=== PATIENT | male | born 1975 | race Caucasian/White ===

== ENCOUNTER 2017-04-23 17:06 | Emergency (ER) | payer MEDICARE, OTHER ==
[2017-04-23 17:07] VITALS: BMI 209.6
--- NOTE | 2017-04-23 17:53 | ED PDOC ---
Arrival/HPI <TommyLiam - Last Filed: 04/24/17 05:51> - General Historian: Patient - History of Present Illness Time/Duration: Other (see hpi) Context: Other (wandering on the street) <Oumou Dobbins - Last Filed: 04/26/17 09:18> - General Chief Complaint: Substance Abuse Time Seen by Provider: 04/23/17 17:41 - History of Present Illness Narrative History of Present Illness (Text): 04/23/17 17:53 This 41 yo male, whose pmh includes hiv, drug abuse, cad, and psychiatric disorder, is brought to this ED by BLS for PES evaluation. Patient was wandering acting bizarre. Patient stated he wanted to get " high", so he walked to a construction site. He injected Amphetamine by injection. He stated he heard a voice, which he thought it was from her mother. He stated he did not feel well, so he called 911, who later sent the police. Patient stated that police told him to be evaluated in ED. Patient denies SI, HI, or paranoia. (Oumou Dobbins) Past Medical History - Provider Review Nursing Documentation Reviewed: Yes - Infectious Disease Hx of Infectious Diseases: None - Tetanus Immunization Tetanus Immunization: Unknown - Cardiac Hx Hypertension: Yes Hx Pacemaker: No - Pulmonary Hx Tuberculosis: No - Neurological Hx Seizures: No - HEENT Hx HEENT Disorder: No - Renal Hx Renal Disorder: No - Endocrine/Metabolic Hx Endocrine Disorders: No - Hematological/Oncological Hx Cancer: No - Integumentary Other/Comment: herpes - Musculoskeletal/Rheumatological Hx Musculoskeletal Disorders: Yes Hx Back Pain: Yes Hx Falls: Yes Hx Herniated Disk: Yes Other/Comment: PINCHED NERVE - Gastrointestinal Hx Gastrointestinal Disorders: No - Genitourinary/Gynecological Hx Sexually Transmitted Diseases: No - Psychiatric Hx Anxiety: Yes Hx Bipolar Disorder: Yes Hx Depression: Yes Hx Post Traumatic Stress Disorder: Yes Hx Substance Use: Yes - Past Surgical History Past Surgical History: No Previous - Surgical History Hx Coronary Stent: Yes (x3) - Anesthesia Hx Anesthesia: Yes Hx Anesthesia Reactions: No Hx Malignant Hyperthermia: No - Suicidal Assessment Feels Threatened In Home Enviroment: No <Oumou Dobbins - Last Filed: 04/26/17 09:18> Family/Social History - Physician Review Nursing Documentation Reviewed: Yes Family/Social History: Other (noncontributory) Smoking Status: Heavy Smoker > 10 Cigarettes Daily Hx Alcohol Use: Yes Hx Substance Use: Yes Substance used: crystal meth, heroine Hx Substance Use Treatment: No <Oumou Dobbins Janes - Last Filed: 04/26/17 09:18> Allergies/Home Meds <Tommy,Liam - Last Filed: 04/24/17 05:51> <Oumou Dobbins - Last Filed: 04/26/17 09:18> Allergies/Adverse Reactions: Allergies No Known Allergies Allergy (Verified 04/23/17 17:37) Home Medications: Home Meds Medication Instructions Recorded Confirmed Aspirin [Ecotrin] 81 mg PO DAILY 04/19/15 04/23/17 Emtricitab/Rilpiviri/Tenof [place] 1 tab PO DAILY 04/23/17 04/23/17 [Odefsey Tablet] Ramipril [Altace] 1 tab PO DAILY 04/23/17 04/23/17 Review of Systems - Review of Systems Constitutional: Normal. absent: Fatigue, Weight Change, Fevers Eyes: Normal ENT: Normal Respiratory: Normal. absent: SOB, Cough, Sputum Cardiovascular: Normal. absent: Chest Pain, Palpitations Gastrointestinal: Normal. absent: Abdominal Pain, Nausea, Vomiting Genitourinary Male: Normal. absent: Dysuria, Frequency, Hematuria Musculoskeletal: Normal Skin: Normal Neurological: Normal Endocrine: Normal Hemo/Lymphatic: Normal Psychiatric: Other (see hpi) <Oumou Dobbins - Last Filed: 04/26/17 09:18> Physical Exam Temperature: Afebrile Blood Pressure: Normal Pulse: Regular Respiratory Rate: Normal Appearance: Positive for: Well-Appearing, Non-Toxic, Comfortable Pain Distress: None Mental Status: Positive for: Alert and Oriented X 3 - Systems Exam Head: Present: Atraumatic, Normocephalic Pupils: Present: PERRL Extroacular Muscles: Present: EOMI Conjunctiva: Present: Normal Mouth: Present: Moist Mucous Membranes Neck: Present: Normal Range of Motion Respiratory/Chest: Present: Clear to Auscultation, Good Air Exchange. No: Respiratory Distress, Accessory Muscle Use Cardiovascular: Present: Regular Rate and Rhythm, Normal S1, S2. No: Murmurs Abdomen: Present: Normal Bowel Sounds. No: Tenderness, Distention, Peritoneal Signs Back: Present: Normal Inspection. No: CVA Tenderness Upper Extremity: Present: Normal Inspection. No: Cyanosis, Edema Lower Extremity: Present: Normal Inspection. No: Edema Neurological: Present: GCS=15, CN II-XII Intact, Speech Normal, Motor Func Grossly Intact, Normal Sensory Function, Normal Cerebellar Funct, Gait Normal Skin: Present: Warm, Dry, Normal Color. No: Rashes Psychiatric: Present: Alert, Oriented x 3, Delusional, Hallucinations, Other ( drug abuse). No: Suicidal Ideation, Homicidal Ideation <Oumou Dobbins P - Last Filed: 04/26/17 09:18> Vital Signs Temp Pulse Resp BP Pulse Ox 04/24/17 06:00 88 18 140/82 100 04/24/17 04:00 88 18 142/83 100 04/24/17 02:00 97.8 F 89 18 144/92 H 100 04/24/17 00:45 88 18 140/80 100 04/24/17 00:41 98.1 F 91 H 17 140/90 100 04/23/17 21:07 97.9 F 84 16 144/91 H 99 04/23/17 19:07 95 H 18 148/95 H 98 04/23/17 17:31 98.2 F 101 H 18 167/110 H 100 Medical Decision Making <Liam Sanders - Last Filed: 04/24/17 05:51> - Lab Interpretations I have reviewed the lab results: Yes Interpretation: No clinic. lab abnormalty - EKG Interpretation Interpreted by ED Physician: Yes (NSR @ [address] changes) Type: 12 lead EKG Comparison: No previous EKG avail. <Oumou Dobbins P - Last Filed: 04/26/17 09:18> ED Course and Treatment: 04/24/17 05:33 Pt seen and evaluated by [facility] screener, pt not accepted for involuntary admission. Pt re-evaluated by [facility] screener Ronn, who discussed case with psychiatrist supervisor car installations. Pt psychiatrically cleared for d/c for outpt f/u. ( Liam Sanders) 04/23/17 22:12 Patient is medically clear for PES screening. 04/23/17 22:25 Jason from PES evaluated patient, and spoke with psychiatrist supervisor car installations. Jason recommended patient to be evaluated by [facility] for involuntary admission. 04/24/17 01:26 Pending [facility] PES evaluation. Dr. Haywood is aware of plan. (Oumou Dobbins) - Lab Interpretations Lab Results: 04/23/17 18:08 04/23/17 18:08 Lab Results 04/23/17 18:33: Urine Opiates Screen Negative, Urine Methadone Screen Negative, Ur Barbiturates Screen Negative, Ur Phencyclidine Scrn Negative, Ur Amphetamines Screen No result, U Benzodiazepines Scrn Negative, U Oth Cocaine Metabols Negative, U Cannabinoids Screen Negative 04/23/17 18:33: Urine Color Light yellow, Urine Appearance Clear, Urine pH 6.0, Ur Specific [place] 1.010, Urine Protein Negative, Urine Glucose (UA) Negative, Urine Ketones Negative, Urine Blood Negative, Urine Nitrate Negative, Urine Bilirubin Negative, Urine Urobilinogen 0.2, Ur Leukocyte Esterase Negative 04/23/17 18:08: Alcohol, Quantitative < 10 04/23/17 18:08: Salicylates < 1 L, Acetaminophen < 10.0 L 04/23/17 18:08: Sodium 140, Potassium 4.0, Chloride 101, Carbon Dioxide 28, Anion Gap 15, BUN 17, Creatinine 0.9, Est GFR ( Amer) > 60, Est GFR (Non- Af Amer) > 60, Random Glucose 101, Calcium 10.0, Total Bilirubin 0.4, AST 46, ALT 36, Alkaline Phosphatase 50, Total Protein 7.5, Albumin 4.4, Globulin 3.1, Albumin/Globulin Ratio 1.5 04/23/17 18:08: WBC 7.7, RBC 4.55, Hgb 14.6, Hct 42.4, MCV 93.2, MCH 32.1, MCHC 34.4, RDW 12.3, Plt Count 192, MPV 10.0, Gran % 67.4, Lymph % (Auto) 23.8, [place] % (Auto) 7.8 H, Eos % (Auto) 0.6 L, Baso % (Auto) 0.4, Gran # 5.22, Lymph # ( Auto) 1.8, [place] # (Auto) 0.6, Eos # (Auto) 0.1, Baso # (Auto) 0.03 - RAD Interpretation Narrative RAD Interpretations (Text): 04/23/17 22:00 Chest x-rays: No acute disease (Oumou Dobbins) Radiology Orders: 04/23/17 17:52 CHEST PORTABLE [RAD] Stat - Medication Orders Current Medication Orders: Discontinued Medications Lorazepam (Ativan) 1 mg IM ONCE ONE PRN Reason: Protocol Stop: 04/24/17 01:34 Last Admin: 04/24/17 01:55 Dose: 1 mg IM Administration Charges Document 04/24/17 01:55 JOL (Rec: 04/24/17 02:18 JOL [id number]) Injection Site MAR Injection Site Left Vastus Lateralis Charges for Administration # of IM Administrations 1 - PA / CHANNEL MAN / Resident Statement / has reviewed & agrees with the documentation as recorded. / has examined the patient and agrees with the treatment plan. <Liam Sanders - Last Filed: 04/24/17 05:51> Disposition/Present on Arrival - Present on Arrival Any Indicators Present on Arrival: No - Disposition Have Diagnosis and Disposition been Completed?: Yes Disposition Time: 05:50 Patient Plan: Discharge <Liam Sanders - Last Filed: 04/24/17 05:51> - Present on Arrival Any Indicators Present on Arrival: No History of DVT/PE: No History of Uncontrolled Diabetes: No Urinary Catheter: No History of Decub. Ulcer: No History Surgical Site Infection Following: Orthopedic Procedures - Disposition Have Diagnosis and Disposition been Completed?: Yes <Oumou Dobbins - Last Filed: 04/26/17 09:18> - Disposition Diagnosis: Bipolar disorder, Substance abuse Disposition: HOME/ ROUTINE Condition: GOOD Additional Instructions: Follow up with your doctor as scheduled Forms: [employer] (Nepali)
[2017-04-23 19:00] LABS: BASO # 0.03 K/mm3 (0.0-2.0); BASO % 0.4 % (0.0-3.0); EOS # 0.1 (0.0-0.7); EOS % 0.6 % (1.5-5.0); GRAN # 5.22 (1.4-6.5); GRAN % 67.4 % (50.0-68.0); HEMOGLOBIN 14.6 g/dL (14.0-18.0); LYMPH # 1.8 (1.2-3.4); LYMPH % 23.8 % (22.0-35.0); MEAN CELL VOLUME 93.2 fl (80.0-105.0); MEAN CORPUSCULAR HEMOGLOBIN 32.1 pg (25.0-35.0); MEAN CORPUSCULAR HGB CONC 34.4 g/dl (31.0-37.0); MONO # 0.6 (0.1-0.6); MONO % 7.8 % (1.0-6.0); RBC 4.55 10^6/uL (3.5-6.1); RED CELL DISTRIBUTION WIDTH 12.3 % (11.5-14.5); WHITE BLOOD COUNT 7.7 10^3/ul (4.5-11.0)
[2017-04-23 19:01] LABS: URINE BILIRUBIN NEGATIVE (NEGATIVE); URINE BLOOD NEGATIVE (NEGATIVE); URINE GLUCOSE (UA) NEGATIVE (NEGATIVE); URINE LEUKOCYTE ESTERASE NEGATIVE Leu/uL (NEGATIVE); URINE PROTEIN NEGATIVE mg/dL (<30 mg/dL); URINE UROBILINOGEN 0.2 E.U./dL (<1 E.U./dL)
[2017-04-23 19:03] LABS: URINE APPEARANCE CLEAR (CLEAR); URINE COLOR LIGHT YELLOW (YELLOW)
[2017-04-23 19:09] LABS: ACETAMINOPHEN < 10.0 ug/ml (10.0-20.0); SALICYLATE < 1 mg/dL (2.0-20.0)
[2017-04-23 19:10] LABS: ALB/GLOB RATIO 1.5 (1.1-1.8); ALBUMIN 4.4 g/dL (3.0-4.8); ALT/SGPT 36 U/L (7-56); AST/SGOT 46 U/L (17-59); BLOOD UREA NITROGEN 17 mg/dL (7-21); GFR AFRICAN-AMERICAN > 60; GFR NON-AFRICAN AMERICAN > 60
[2017-04-23 19:20] LABS: BARBITURATES, UR NEGATIVE (NEGATIVE); BENZODIAZEPINES, UR NEGATIVE (NEGATIVE); OPIATES, UR NEGATIVE (NEGATIVE); PHENCYCLIDINE, UR NEGATIVE (NEGATIVE)
[2017-04-24 00:42] VITALS: O2SAT 100
[2017-04-24 00:45] VITALS: RESP 18
[2017-04-24 03:37] VITALS: TEMP 97.8
[2017-04-24 06:01] VITALS: PULSE 88
[2017-04-24 06:05] VITALS: BP 140/82
--- NOTE | 2017-04-24 09:59 | RAD ---
HISTORY: PES COMPARISON: 04/18/2015 FINDINGS: LUNGS: No active pulmonary disease. PLEURA: No significant pleural effusion identified, no pneumothorax apparent. CARDIOVASCULAR: Normal. OSSEOUS STRUCTURES: No significant abnormalities. VISUALIZED UPPER ABDOMEN: Normal. OTHER FINDINGS: None. IMPRESSION: No active disease.
--- NOTE | 2017-04-24 22:29 | CARD ---
APPROVED REPORT EKG Measurement Heart [id number] <Conclusion> Normal sinus rhythm Minimal voltage criteria for LVH, may be normal variant Borderline ECG
== END 2017-04-24 06:06 | disposition home or self-care (01) ==
LOC: ED 17:06
DX: F31.9 Bipolar disorder, unspecified (principal); F19.10 Other psychoactive substance abuse, uncomplicated; I10 Essential (primary) hypertension; Z95.5 Presence of coronary angioplasty implant and graft; F17.210 Nicotine dependence, cigarettes, uncomplicated
CPT/HCPCS: 71045; 80053; 81003; 85025; 90791; 93005; 96372; 99285; G0480; J2060

== ENCOUNTER 2017-11-19 19:12 | Emergency (ER) | payer OTHER ==
[2017-11-19 19:20] VITALS: BMI 23.5
--- NOTE | 2017-11-19 20:06 | ED PDOC ---
Arrival/HPI - General Historian: Patient - History of Present Illness Narrative History of Present Illness (Text): 11/19/17 20:05 42yo male with pmhx of HIV, drug abuse, CAD, hypertension, psychiatric history bib EMS for psychiatric evaluation. Per EMS, patient was found wandering on the street and acting bizarre. Patient was also acting bizarre in ED, talking to himself. He is not answering questions. <Darnell Lacy A - Last Filed: 11/20/17 01:52> <Liam Sanders - Last Filed: 11/20/17 07:00> - General Chief Complaint: Psychiatric Evaluation Time Seen by Provider: 11/19/17 19:21 Past Medical History - Provider Review Nursing Documentation Reviewed: Yes - Infectious Disease Hx of Infectious Diseases: None - Tetanus Immunization Tetanus Immunization: Unknown - Cardiac Hx Hypertension: Yes Hx Pacemaker: No - Pulmonary Hx Tuberculosis: No - Neurological Hx Seizures: No - HEENT Hx HEENT Disorder: No - Renal Hx Renal Disorder: No - Endocrine/Metabolic Hx Endocrine Disorders: No - Hematological/Oncological Hx Cancer: No - Integumentary Other/Comment: herpes - Musculoskeletal/Rheumatological Hx Musculoskeletal Disorders: Yes Hx Back Pain: Yes Hx Falls: Yes Hx Herniated Disk: Yes Other/Comment: PINCHED NERVE - Gastrointestinal Hx Gastrointestinal Disorders: No - Genitourinary/Gynecological Hx Sexually Transmitted Diseases: No - Psychiatric Hx Anxiety: Yes Hx Bipolar Disorder: Yes Hx Depression: Yes Hx Post Traumatic Stress Disorder: Yes Hx Substance Use: Yes - Past Surgical History Past Surgical History: No Previous - Surgical History Hx Coronary Stent: Yes (x3) - Anesthesia Hx Anesthesia: Yes Hx Anesthesia Reactions: No Hx Malignant Hyperthermia: No - Suicidal Assessment Feels Threatened In Home Enviroment: No <Darnell Lacy A - Last Filed: 11/20/17 01:52> Family/Social History - Physician Review Nursing Documentation Reviewed: Yes Family/Social History: Unknown Family HX Smoking Status: Heavy Smoker > 10 Cigarettes Daily Hx Alcohol Use: Yes Hx Substance Use: Yes Substance used: crystal meth, heroine Hx Substance Use Treatment: No <Darnell Lacy A - Last Filed: 11/20/17 01:52> Allergies/Home Meds <Darnell Lacy - Last Filed: 11/20/17 01:52> <iLam Sanders - Last Filed: 11/20/17 07:00> Allergies/Adverse Reactions: Allergies No Known Allergies Allergy (Verified 11/19/17 20:00) Home Medications: Home Meds Medication Instructions Recorded Confirmed Ramipril [Altace] 1 tab PO DAILY 04/23/17 11/20/17 Review of Systems - Physician Review All systems were reviewed & negative as marked: Yes - Review of Systems Constitutional: Normal Eyes: Normal ENT: Normal Respiratory: Normal Cardiovascular: Normal Gastrointestinal: Normal Genitourinary Male: Normal Musculoskeletal: Normal Skin: Normal Neurological: Normal Endocrine: Normal Hemo/Lymphatic: Normal Psychiatric: Other (Psychiatiric evaluation) <Darnell Lacy A - Last Filed: 11/20/17 01:52> Physical Exam Vital Signs Reviewed: Yes Vital Signs Temp Pulse Resp BP Pulse Ox 11/19/17 19:12 98.4 F 79 18 205/101 H 97 Temperature: Afebrile Blood Pressure: Hypertensive Pulse: Regular Respiratory Rate: Normal Appearance: Positive for: Well-Appearing, Non-Toxic, Comfortable, Other (Very bizzare and tangential in ED) Pain Distress: None Mental Status: Positive for: Alert and Oriented X 3 - Systems Exam Head: Present: Atraumatic, Normocephalic Pupils: Present: PERRL Extroacular Muscles: Present: EOMI Conjunctiva: Present: Normal Mouth: Present: Moist Mucous Membranes Neck: Present: Normal Range of Motion Respiratory/Chest: Present: Clear to Auscultation, Good Air Exchange. No: Respiratory Distress, Accessory Muscle Use Cardiovascular: Present: Regular Rate and Rhythm, Normal S1, S2. No: Murmurs Abdomen: No: Tenderness, Distention, Peritoneal Signs Back: Present: Normal Inspection Upper Extremity: Present: Normal Inspection. No: Cyanosis, Edema Lower Extremity: Present: Normal Inspection. No: Edema Neurological: Present: GCS=15, CN II-XII Intact, Speech Normal Skin: Present: Warm, Dry, Normal Color. No: Rashes Psychiatric: Present: Alert, Normal Concentration <Darnell Lacy Bk - Last Filed: 11/20/17 01:52> Vital Signs Temp Pulse Resp BP Pulse Ox 11/19/17 22:01 80 190/113 H 11/19/17 19:12 98.4 F 79 18 205/101 H 97 <Liam Sanders - Last Filed: 11/20/17 07:00> Medical Decision Making ED Course and Treatment: 11/19/17 22:47 Pt in ED for psychiatric evaluation. He was hypertensive in ED. Per the RN patient states he was Ramipril, but ran out weeks ago and have not taken any antihypertensive. Norvasc 5mg ordered EKG NSR @ 73bpm. LVH. CXR NAD His labs was reviewed and he was medically cleared for evaluation He was seen in ED by PES screener Jason. He states that he discussed case with the psychiatrist and pt will be screen by NELSY. 11/20/17 01:52 Case was endorsed to Dr. Sanders to f/u and dispo <Darnell Lacy - Last Filed: 11/20/17 01:52> ED Course and Treatment: 06:30 Pt. was accepted by [facility] screeners for transfer/admission 11/20/17 07:00 Case endorsed to .Pt. currently resting comfortably.Awaiting bed availability at [facility] - Lab Interpretations Lab Results: 11/19/17 20:16 11/19/17 20:16 Lab Results 11/19/17 21:45: Urine Color Straw, Urine Appearance Clear, Urine pH 6.0, Ur Specific [place] 1.010, Urine Protein Negative, Urine Glucose (UA) Negative, Urine Ketones Negative, Urine Blood Negative, Urine Nitrate Negative, Urine Bilirubin Negative, Urine Urobilinogen 0.2, Ur Leukocyte Esterase Negative 11/19/17 20:16: Alcohol, Quantitative < 10 11/19/17 20:16: Salicylates < 1 L, Acetaminophen < 10.0 L 11/19/17 20:16: Sodium 140, Potassium 4.1, Chloride 105, Carbon Dioxide 25, Anion Gap 10, BUN 16, Creatinine 1.0, Est GFR ( Amer) > 60, Est GFR (Non- Af Amer) > 60, Random Glucose 123 H, Calcium 9.6, Magnesium 2.2, Total Bilirubin 0.2, AST 52, ALT 47, Alkaline Phosphatase 62, Total Protein 8.2, Albumin 4.8, G lobulin 3.4, Albumin/Globulin Ratio 1.4 11/19/17 20:16: WBC 10.3 D, RBC 4.73, Hgb 15.2, Hct 43.1, MCV 91.1, MCH 32.1, MCHC 35.3, RDW 12.3, Plt Count 229, MPV 10.1, Gran % 72.3 H, Lymph % (Auto) 21.3 L, [place] % (Auto) 5.1, Eos % (Auto) 1.0 L, Baso % (Auto) 0.3, Gran # 7.42 H, Lymph # (Auto) 2.2, [place] # (Auto) 0.5, Eos # (Auto) 0.1, Baso # (Auto) 0.03 - Medication Orders Current Medication Orders: Discontinued Medications Amlodipine Besylate (Norvasc) 5 mg PO STAT STA Stop: 11/19/17 21:52 Last Admin: 11/19/17 22:01 Dose: 5 mg MAR Pulse and Blood Pressure Document 11/19/17 22:01 SS (Rec: 11/19/17 22:01 [id number]) Pulse Pulse Rate (60-90 beats/min) 80 Blood Pressure Blood Pressure (100/60-150/90 mm Hg) 190/113 <Liam Sanders - Last Filed: 11/20/17 07:00> - PA / OPEN TENTER OPERATOR / Resident Statement MARY has reviewed & agrees with the documentation as recorded. MARY has examined the patient and agrees with the treatment plan. <Liam Sanders - Last Filed: 11/20/17 07:00> Disposition/Present on Arrival - Present on Arrival Any Indicators Present on Arrival: No History of DVT/PE: No History of Uncontrolled Diabetes: No Urinary Catheter: No History of Decub. Ulcer: No History Surgical Site Infection Following: Orthopedic Procedures - Disposition Have Diagnosis and Disposition been Completed?: Yes <Darnell Lacy - Last Filed: 11/20/17 01:52> - Present on Arrival Any Indicators Present on Arrival: No - Disposition Have Diagnosis and Disposition been Completed?: No Disposition Time: 07:00 <Liam Sanders - Last Filed: 11/20/17 07:00> - Disposition Diagnosis: Psychosis Patient Problems: Current Active Problems Problem Status Onset Bipolar II disorder Acute Condition: STABLE Forms: [employer] (Armenian)
[2017-11-19 20:27] LABS: BASO # 0.03 K/mm3 (0.0-2.0); BASO % 0.3 % (0.0-3.0); EOS # 0.1 (0.0-0.7); GRAN # 7.42 (1.4-6.5); GRAN % 72.3 % (50.0-68.0); HEMOGLOBIN 15.2 g/dL (14.0-18.0); LYMPH # 2.2 (1.2-3.4); LYMPH % 21.3 % (22.0-35.0); MEAN CELL VOLUME 91.1 fl (80.0-105.0); MEAN CORPUSCULAR HEMOGLOBIN 32.1 pg (25.0-35.0); MEAN CORPUSCULAR HGB CONC 35.3 g/dl (31.0-37.0); MEAN PLATELET VOLUME 10.1 fl (7.0-11.0); MONO # 0.5 (0.1-0.6); MONO % 5.1 % (1.0-6.0); RBC 4.73 10^6/uL (3.5-6.1); RED CELL DISTRIBUTION WIDTH 12.3 % (11.5-14.5); WHITE BLOOD COUNT 10.3 10^3/ul (4.5-11.0)
[2017-11-19 20:32] LABS: ACETAMINOPHEN < 10.0 ug/ml (10.0-20.0); SALICYLATE < 1 mg/dL (2.0-20.0)
[2017-11-19 20:50] LABS: ALB/GLOB RATIO 1.4 (1.1-1.8); ALBUMIN 4.8 g/dL (3.0-4.8); ALT/SGPT 47 U/L (7-56); AST/SGOT 52 U/L (17-59); BLOOD UREA NITROGEN 16 mg/dL (7-21); CALCIUM 9.6 mg/dL (8.4-10.5); GFR NON-AFRICAN AMERICAN > 60
[2017-11-19 22:00] LABS: URINE BILIRUBIN NEGATIVE (NEGATIVE); URINE BLOOD NEGATIVE (NEGATIVE); URINE GLUCOSE (UA) NEGATIVE (NEGATIVE); URINE LEUKOCYTE ESTERASE NEGATIVE Leu/uL (NEGATIVE); URINE PROTEIN NEGATIVE mg/dL (<30 mg/dL); URINE UROBILINOGEN 0.2 E.U./dL (<1 E.U./dL)
[2017-11-19 22:03] LABS: URINE APPEARANCE CLEAR (CLEAR); URINE COLOR STRAW (YELLOW)
[2017-11-19 23:25] LABS: BARBITURATES, UR NEGATIVE (NEGATIVE); BENZODIAZEPINES, UR NEGATIVE (NEGATIVE)
[2017-11-19 23:26] LABS: OPIATES, UR NEGATIVE (NEGATIVE); PHENCYCLIDINE, UR NEGATIVE (NEGATIVE)
--- NOTE | 2017-11-20 08:12 | ED PDOC ---
Physical Exam Vital Signs Temp Pulse Resp BP Pulse Ox 11/20/17 07:13 92 H 20 150/87 98 11/20/17 03:50 90 18 166/97 H 98 11/20/17 02:47 98 H 178/100 H 11/20/17 02:24 88 18 167/100 H 98 11/19/17 23:48 70 175/105 H 11/19/17 23:15 175/105 H 11/19/17 23:00 80 18 190/102 H 98 11/19/17 22:01 80 190/113 H 11/19/17 19:12 98.4 F 79 18 205/101 H 97 Medical Decision Making ED Course and Treatment: 11/20/17 07:10 Patient endorsed to me by Dr. Sanders. Patient is currently resting comfortably. Awaiting bed availability at [facility] psychiatric unit. 11/21/17 1900: Signed out to oncoming physician pending [facility] transfer. - Lab Interpretations Lab Results: 11/19/17 20:16 11/19/17 20:16 Lab Results 11/19/17 21:45: Urine Opiates Screen Negative, Urine Methadone Screen Negative, Ur Barbiturates Screen Negative, Ur Phencyclidine Scrn Negative, Ur Amphetamines Screen Positive H, U Benzodiazepines Scrn Negative, U Oth Cocaine Metabols Negative, U Cannabinoids Screen Negative 11/19/17 21:45: Urine Color Straw, Urine Appearance Clear, Urine pH 6.0, Ur Specific [place] 1.010, Urine Protein Negative, Urine Glucose (UA) Negative, Urine Ketones Negative, Urine Blood Negative, Urine Nitrate Negative, Urine Bilirubin Negative, Urine Urobilinogen 0.2, Ur Leukocyte Esterase Negative 11/19/17 20:16: Alcohol, Quantitative < 10 11/19/17 20:16: Salicylates < 1 L, Acetaminophen < 10.0 L 11/19/17 20:16: Sodium 140, Potassium 4.1, Chloride 105, Carbon Dioxide 25, Anion Gap 10, BUN 16, Creatinine 1.0, Est GFR ( Amer) > 60, Est GFR (Non- Af Amer) > 60, Random Glucose 123 H, Calcium 9.6, Magnesium 2.2, Total Bilirubin 0.2, AST 52, ALT 47, Alkaline Phosphatase 62, Total Protein 8.2, Albumin 4.8, Globulin 3.4, Albumin/Globulin Ratio 1.4 11/19/17 20:16: WBC 10.3 D, RBC 4.73, Hgb 15.2, Hct 43.1, MCV 91.1, MCH 32.1, MCHC 35.3, RDW 12.3, Plt Count 229, MPV 10.1, Gran % 72.3 H, Lymph % (Auto) 21.3 L, [place] % (Auto) 5.1, Eos % (Auto) 1.0 L, Baso % (Auto) 0.3, Gran # 7.42 H, Lymph # (Auto) 2.2, [place] # (Auto) 0.5, Eos # (Auto) 0.1, Baso # (Auto) 0.03 - RAD Interpretation Radiology Orders: 11/19/17 22:51 CHEST PORTABLE [RAD] Stat - Medication Orders Current Medication Orders: Discontinued Medications Amlodipine Besylate (Norvasc) 5 mg PO STAT STA Stop: 11/19/17 21:52 Last Admin: 11/19/17 22:01 Dose: 5 mg MAR Pulse and Blood Pressure Document 11/19/17 22:01 SS (Rec: 11/19/17 22:01 SS [id number]) Pulse Pulse Rate (60-90) 80 Blood Pressure Blood Pressure (100/60-150/90) 190/113 Clonidine HCl (Catapres) 0.1 mg PO STAT STA Stop: 11/19/17 23:03 Last Admin: 11/19/17 23:48 Dose: 0.1 mg MAR Pulse and Blood Pressure Document 11/19/17 23:48 SS (Rec: 11/19/17 23:49 SS [id number]) Pulse Pulse Rate (60-90) 70 Blood Pressure Blood Pressure (100/60-150/90) 175/105 Hydralazine HCl (Apresoline) 10 mg PO ONCE STA Stop: 11/20/17 01:48 Last Admin: 11/20/17 02:47 Dose: 10 mg MAR Pulse and Blood Pressure Document 11/20/17 02:47 SS (Rec: 11/20/17 02:47 SS [id number]) Pulse Pulse Rate (60-90) 98 Blood Pressure Blood Pressure (100/60-150/90) 178/100 Lorazepam (Ativan) 1 mg IM ONCE ONE; Protocol Stop: 11/20/17 05:32 Last Admin: 11/20/17 06:22 Dose: 1 mg IM Administration Charges Document 11/20/17 06:22 SS (Rec: 11/20/17 06:22 SS [id number]) Injection Site MAR Injection Site Right Deltoid Charges for Administration # of IM Administrations 1 - Scribe Statement The provider has reviewed the documentation as recorded by the Shayibjez Stacy Provider Scribe Attestation: All medical record entries made by the Scribe were at my direction and personally dictated by me. I have reviewed the chart and agree that the record accurately reflects my personal performance of the history, physical exam, medic al decision making, and the department course for this patient. I have also personally directed, reviewed, and agree with the discharge instructions and disposition. Disposition/Present on Arrival - Present on Arrival Any Indicators Present on Arrival: No History of DVT/PE: No History of Uncontrolled Diabetes: No Urinary Catheter: No History of Decub. Ulcer: No History Surgical Site Infection Following: Orthopedic Procedures - Disposition Have Diagnosis and Disposition been Completed?: Yes Diagnosis: Psychosis Disposition Time: 07:00 Patient Problems: Current Active Problems Problem Status Onset Bipolar II disorder Acute Psychosis Acute Condition: STABLE Forms: [employer] (Macedonian)
--- NOTE | 2017-11-20 09:34 | RAD ---
Date of service: 11/19/2017 HISTORY: admission COMPARISON: 04/23/2017 FINDINGS: LUNGS: No active pulmonary disease. PLEURA: No significant pleural effusion identified, no pneumothorax apparent. CARDIOVASCULAR: Normal. OSSEOUS STRUCTURES: No significant abnormalities. VISUALIZED UPPER ABDOMEN: Normal. OTHER FINDINGS: None. IMPRESSION: No active disease.
--- NOTE | 2017-11-20 13:02 | CARD ---
APPROVED REPORT Date of service: 11/19/2017 EKG Measurement Heart [id number] <Conclusion> Normal sinus rhythm Voltage criteria for left ventricular hypertrophy Abnormal ECG
--- NOTE | 2017-11-20 21:06 | ED PDOC ---
Physical Exam Vital Signs Temp Pulse Resp BP Pulse Ox 11/20/17 19:36 98.4 F 89 18 116/82 100 11/20/17 07:13 92 H 20 150/87 98 11/20/17 03:50 90 18 166/97 H 98 11/20/17 02:47 98 H 178/100 H 11/20/17 02:24 88 18 167/100 H 98 11/19/17 23:48 70 175/105 H 11/19/17 23:15 175/105 H 11/19/17 23:00 80 18 190/102 H 98 11/19/17 22:01 80 190/113 H 11/19/17 19:12 98.4 F 79 18 205/101 H 97 Medical Decision Making ED Course and Treatment: 11/20/17 19:00 Case endorsed to me by Dr. Lilibeth Recio, pending transfer[place]bed [place] [facility]. Patient resting comfortably, in no acute distress. 11/21/17 07:00 Case endorsed to /patient resting comfortably/still awaiting bed availability [place] [facility] - Lab Interpretations Lab Results: 11/19/17 20:16 11/19/17 20:16 Lab Results 11/19/17 21:45: Urine Opiates Screen Negative, Urine Methadone Screen Negative, Ur Barbiturates Screen Negative, Ur Phencyclidine Scrn Negative, Ur Amphetamines Screen Positive H, U Benzodiazepines Scrn Negative, U Oth Cocaine Metabols Negative, U Cannabinoids Screen Negative 11/19/17 21:45: Urine Color Straw, Urine Appearance Clear, Urine pH 6.0, Ur Specific [place] 1.010, Urine Protein Negative, Urine Glucose (UA) Negative, Urine Ketones Negative, Urine Blood Negative, Urine Nitrate Negative, Urine Bilirubin Negative, Urine Urobilinogen 0.2, Ur Leukocyte Esterase Negative 11/19/17 20:16: Alcohol, Quantitative < 10 11/19/17 20:16: Salicylates < 1 L, Acetaminophen < 10.0 L 11/19/17 20:16: Sodium 140, Potassium 4.1, Chloride 105, Carbon Dioxide 25, Anion Gap 10, BUN 16, Creatinine 1.0, Est GFR ( Amer) > 60, Est GFR (Non- Af Amer) > 60, Random Glucose 123 H, Calcium 9.6, Magnesium 2.2, Total Bilirubin 0.2, AST 52, ALT 47, Alkaline Phosphatase 62, Total Protein 8.2, Albumin 4.8, Globulin 3.4, Albumin/Globulin Ratio 1.4 11/19/17 20:16: WBC 10.3 D, RBC 4.73, Hgb 15.2, Hct 43.1, MCV 91.1, MCH 32.1, MCHC 35.3, RDW 12.3, Plt Count 229, MPV 10.1, Gran % 72.3 H, Lymph % (Auto) 21.3 L, [place] % (Auto) 5.1, Eos % (Auto) 1.0 L, Baso % (Auto) 0.3, Gran # 7.42 H, Lymph # (Auto) 2.2, [place] # (Auto) 0.5, Eos # (Auto) 0.1, Baso # (Auto) 0.03 - RAD Interpretation Radiology Orders: 11/19/17 22:51 CHEST PORTABLE [RAD] Stat - Medication Orders Current Medication Orders: Discontinued Medications Amlodipine Besylate (Norvasc) 5 mg PO STAT STA Stop: 11/19/17 21:52 Last Admin: 11/19/17 22:01 Dose: 5 mg MAR Pulse and Blood Pressure Document 11/19/17 22:01 SS (Rec: 11/19/17 22:01 SS [id number]) Pulse Pulse Rate (60-90 beats/min) 80 Blood Pressure Blood Pressure (100/60-150/90 mm Hg) 190/113 Clonidine HCl (Catapres) 0.1 mg PO STAT STA Stop: 11/19/17 23:03 Last Admin: 11/19/17 23:48 Dose: 0.1 mg MAR Pulse and Blood Pressure Document 11/19/17 23:48 SS (Rec: 11/19/17 23:49 SS [id number]) Pulse Pulse Rate (60-90 beats/min) 70 Blood Pressure Blood Pressure (100/60-150/90 mm Hg) 175/105 Haloperidol Lactate (Haldol) 5 mg IM STAT STA; Protocol Stop: 11/20/17 10:10 Last Admin: 11/20/17 10:19 Dose: 5 mg IM Administration Charges Document 11/20/17 10:19 EQ (Rec: 11/20/17 10:19 EQ [facility] [id number] Injection Site MAR Injection Site Left Arm Charges for Administration # of IM Administrations 1 Hydralazine HCl (Apresoline) 10 mg PO ONCE STA Stop: 11/20/17 01:48 Last Admin: 11/20/17 02:47 Dose: 10 mg MAR Pulse and Blood Pressure Document 11/20/17 02:47 SS (Rec: 11/20/17 02:47 SS [id number]) Pulse Pulse Rate (60-90 beats/min) 98 Blood Pressure Blood Pressure (100/60-150/90 mm Hg) 178/100 Lorazepam (Ativan) 1 mg IM ONCE ONE; Protocol Stop: 11/20/17 05:32 Last Admin: 11/20/17 06:22 Dose: 1 mg IM Administration Charges Document 11/20/17 06:22 SS (Rec: 11/20/17 06:22 SS [id number]) Injection Site MAR Injection Site Right Deltoid Charges for Administration # of IM Administrations 1 Lorazepam (Ativan) 2 mg IM ONCE ONE; Protocol Stop: 11/20/17 10:10 Last Admin: 11/20/17 10:19 Dose: 2 mg IM Administration Charges Document 11/20/17 10:19 EQ (Rec: 11/20/17 10:19 EQ [id number] Injection Site MAR Injection Site Left Arm Charges for Administration # of IM Administrations 1 Disposition/Present on Arrival - Present on Arrival Any Indicators Present on Arrival: No History of DVT/PE: No History of Uncontrolled Diabetes: No Urinary Catheter: No History of Decub. Ulcer: No History Surgical Site Infection Following: Orthopedic Procedures - Disposition Have Diagnosis and Disposition been Completed?: No Diagnosis: Psychosis Disposition Time: 07:00 Patient Problems: Current Active Problems Problem Status Onset Bipolar II disorder Acute Psychosis Acute Condition: STABLE Forms: [employer] (Malay)
--- NOTE | 2017-11-21 07:27 | ED PDOC ---
Physical Exam Vital Signs Temp Pulse Resp BP Pulse Ox 11/21/17 06:00 97.9 F 96 H 18 96/71 L 100 11/21/17 01:35 97.8 F 92 H 18 110/71 99 11/20/17 19:36 98.4 F 89 18 116/82 100 11/20/17 07:13 92 H 20 150/87 98 11/20/17 03:50 90 18 166/97 H 98 11/20/17 02:47 98 H 178/100 H 11/20/17 02:24 88 18 167/100 H 98 11/19/17 23:48 70 175/105 H 11/19/17 23:15 175/105 H 11/19/17 23:00 80 18 190/102 H 98 11/19/17 22:01 80 190/113 H 11/19/17 19:12 98.4 F 79 18 205/101 H 97 Medical Decision Making ED Course and Treatment: 11/21/17 07:24 Case endorsed to me by Dr. Sanders, pending bed availability at [facility] [place]. - Lab Interpretations Lab Results: 11/19/17 20:16 11/19/17 20:16 Lab Results 11/19/17 21:45: Urine Opiates Screen Negative, Urine Methadone Screen Negative, Ur Barbiturates Screen Negative, Ur Phencyclidine Scrn Negative, Ur Amphetamines Screen Positive H, U Benzodiazepines Scrn Negative, U Oth Cocaine Metabols Negative, U Cannabinoids Screen Negative 11/19/17 21:45: Urine Color Straw, Urine Appearance Clear, Urine pH 6.0, Ur Specific [place] 1.010, Urine Protein Negative, Urine Glucose (UA) Negative, U rine Ketones Negative, Urine Blood Negative, Urine Nitrate Negative, Urine Bilirubin Negative, Urine Urobilinogen 0.2, Ur Leukocyte Esterase Negative 11/19/17 20:16: Alcohol, Quantitative < 10 11/19/17 20:16: Salicylates < 1 L, Acetaminophen < 10.0 L 11/19/17 20:16: Sodium 140, Potassium 4.1, Chloride 105, Carbon Dioxide 25, Anion Gap 10, BUN 16, Creatinine 1.0, Est GFR ( Amer) > 60, Est GFR (Non- Af Amer) > 60, Random Glucose 123 H, Calcium 9.6, Magnesium 2.2, Total Bilirubin 0.2, AST 52, ALT 47, Alkaline Phosphatase 62, Total Protein 8.2, Albumin 4.8, Globulin 3.4, Albumin/Globulin Ratio 1.4 11/19/17 20:16: WBC 10.3 D, RBC 4.73, Hgb 15.2, Hct 43.1, MCV 91.1, MCH 32.1, MCHC 35.3, RDW 12.3, Plt Count 229, MPV 10.1, Gran % 72.3 H, Lymph % (Auto) 21.3 L, [place] % (Auto) 5.1, Eos % (Auto) 1.0 L, Baso % (Auto) 0.3, Gran # 7.42 H, Lymph # (Auto) 2.2, [place] # (Auto) 0.5, Eos # (Auto) 0.1, Baso # (Auto) 0.03 - RAD Interpretation Radiology Orders: 11/19/17 22:51 CHEST PORTABLE [RAD] Stat - Medication Orders Current Medication Orders: Discontinued Medications Amlodipine Besylate (Norvasc) 5 mg PO STAT STA Stop: 11/19/17 21:52 Last Admin: 11/19/17 22:01 Dose: 5 mg MAR Pulse and Blood Pressure Document 11/19/17 22:01 SS (Rec: 11/19/17 22:01 SS [id number]) Pulse Pulse Rate (60-90) 80 Blood Pressure Blood Pressure (100/60-150/90) 190/113 Clonidine HCl (Catapres) 0.1 mg PO STAT STA Stop: 11/19/17 23:03 Last Admin: 11/19/17 23:48 Dose: 0.1 mg MAR Pulse and Blood Pressure Document 11/19/17 23:48 SS (Rec: 11/19/17 23:49 SS [id number]) Pulse Pulse Rate (60-90) 70 Blood Pressure Blood Pressure (100/60-150/90) 175/105 Haloperidol Lactate (Haldol) 5 mg IM STAT STA; Protocol Stop: 11/20/17 10:10 Last Admin: 11/20/17 10:19 Dose: 5 mg IM Administration Charges Document 11/20/17 10:19 EQ (Rec: 11/20/17 10:19 EQ [facility] [id number] Injection Site MAR Injection Site Left Arm Charges for Administration # of IM Administrations 1 Hydralazine HCl (Apresoline) 10 mg PO ONCE STA Stop: 11/20/17 01:48 Last Admin: 11/20/17 02:47 Dose: 10 mg MAR Pulse and Blood Pressure Document 11/20/17 02:47 SS (Rec: 11/20/17 02:47 SS [id number]) Pulse Pulse Rate (60-90) 98 Blood Pressure Blood Pressure (100/60-150/90) 178/100 Lorazepam (Ativan) 1 mg IM ONCE ONE; Protocol Stop: 11/20/17 05:32 Last Admin: 11/20/17 06:22 Dose: 1 mg IM Administration Charges Document 11/20/17 06:22 SS (Rec: 11/20/17 06:22 SS [id number]) Injection Site MAR Injection Site Right Deltoid Charges for Administration # of IM Administrations 1 Lorazepam (Ativan) 2 mg IM ONCE ONE; Protocol Stop: 11/20/17 10:10 Last Admin: 11/20/17 10:19 Dose: 2 mg IM Administration Charges Document 11/20/17 10:19 EQ (Rec: 11/20/17 10:19 EQ [facility] [id number] Injection Site MAR Injection Site Left Arm Charges for Administration # of IM Administrations 1 - Scribe Statement The provider has reviewed the documentation as recorded by the Mariajose Jacob Provider Scribe Attestation: All medical record entries made by the Scribe were at my direction and personally dictated by me. I have reviewed the chart and agree that the record accurately reflects my personal performance of the history, physical exam, medical decision making, and the department course for this patient. I have also personally directed, reviewed, and agree with the discharge instructions and disposition. Disposition/Present on Arrival - Present on Arrival Any Indicators Present on Arrival: No History of DVT/PE: No History of Uncontrolled Diabetes: No Urinary Catheter: No History of Decub. Ulcer: No History Surgical Site Infection Following: Orthopedic Procedures - Disposition Have Diagnosis and Disposition been Completed?: Yes Diagnosis: Psychosis Disposition Time: 19:00 Patient Problems: Current Active Problems Problem Status Onset Bipolar II disorder Acute Psychosis Acute Condition: STABLE Forms: [employer] (Nepali)
--- NOTE | 2017-11-21 19:16 | ED PDOC ---
Physical Exam Vital Signs Reviewed: Yes Vital Signs Temp Pulse Resp BP Pulse Ox 11/21/17 15:53 98.2 F 105 H 17 107/80 95 11/21/17 06:00 97.9 F 96 H 18 96/71 L 100 11/21/17 01:35 97.8 F 92 H 18 110/71 99 11/20/17 19:36 98.4 F 89 18 116/82 100 11/20/17 07:13 92 H 20 150/87 98 11/20/17 03:50 90 18 166/97 H 98 11/20/17 02:47 98 H 178/100 H 11/20/17 02:24 88 18 167/100 H 98 11/19/17 23:48 70 175/105 H 11/19/17 23:15 175/105 H 11/19/17 23:00 80 18 190/102 H 98 11/19/17 22:01 80 190/113 H 11/19/17 19:12 98.4 F 79 18 205/101 H 97 Temperature: Afebrile Blood Pressure: Normal Pulse: Regular Respiratory Rate: Normal Appearance: Positive for: Well-Appearing, Comfortable Pain Distress: None - Systems Exam Head: Present: Atraumatic, Normocephalic Pupils: Present: PERRL Extroacular Muscles: Present: EOMI Conjunctiva: Present: Normal Mouth: Present: Moist Mucous Membranes Neck: Present: Normal Range of Motion Respiratory/Chest: Present: Clear to Auscultation, Good Air Exchange. No: Respiratory Distress, Accessory Muscle Use Cardiovascular: Present: Regular Rate and Rhythm, Normal S1, S2. No: Murmurs Abdomen: No: Tenderness, Distention, Peritoneal Signs Back: Present: Normal Inspection Upper Extremity: Present: Normal Inspection. No: Cyanosis, Edema Lower Extremity: Present: Normal Inspection. No: Edema Neurological: Present: GCS=15, CN II-XII Intact, Speech Normal Skin: Present: Warm, Dry, Normal Color. No: Rashes Psychiatric: Present: Alert, Normal Concentration Medical Decision Making ED Course and Treatment: 11/21/17 19:00 Case endorsed to me by Dr. Templeton for pending bed availability at [facility]. Patient is resting comfortably in bed in no acute distress. Patient presents no new complaints. - Lab Interpretations Lab Results: 11/19/17 20:16 11/19/17 20:16 Lab Results 11/19/17 21:45: Urine Opiates Screen Negative, Urine Methadone Screen Negative, Ur Barbiturates Screen Negative, Ur Phencyclidine Scrn Negative, Ur Amphetamines Screen Positive H, U Benzodiazepines Scrn Negative, U Oth Cocaine Metabols Negative, U Cannabinoids Screen Negative 11/19/17 21:45: Urine Color Straw, Urine Appearance Clear, Urine pH 6.0, Ur Spe cific [place] 1.010, Urine Protein Negative, Urine Glucose (UA) Negative, Urine Ketones Negative, Urine Blood Negative, Urine Nitrate Negative, Urine Bilirubin Negative, Urine Urobilinogen 0.2, Ur Leukocyte Esterase Negative 11/19/17 20:16: Alcohol, Quantitative < 10 11/19/17 20:16: Salicylates < 1 L, Acetaminophen < 10.0 L 11/19/17 20:16: Sodium 140, Potassium 4.1, Chloride 105, Carbon Dioxide 25, Anion Gap 10, BUN 16, Creatinine 1.0, Est GFR ( Amer) > 60, Est GFR (Non- Af Amer) > 60, Random Glucose 123 H, Calcium 9.6, Magnesium 2.2, Total Bilirubin 0.2, AST 52, ALT 47, Alkaline Phosphatase 62, Total Protein 8.2, Albumin 4.8, Globulin 3.4, Albumin/Globulin Ratio 1.4 11/19/17 20:16: WBC 10.3 D, RBC 4.73, Hgb 15.2, Hct 43.1, MCV 91.1, MCH 32.1, MCHC 35.3, RDW 12.3, Plt Count 229, MPV 10.1, Gran % 72.3 H, Lymph % (Auto) 21.3 L, [place] % (Auto) 5.1, Eos % (Auto) 1.0 L, Baso % (Auto) 0.3, Gran # 7.42 H, Lymph # (Auto) 2.2, [place] # (Auto) 0.5, Eos # (Auto) 0.1, Baso # (Auto) 0.03 - RAD Interpretation Radiology Orders: 11/19/17 22:51 CHEST PORTABLE [RAD] Stat - Medication Orders Current Medication Orders: Aripiprazole (Abilify) 5 mg PO AMHS ELIU Nicotine (Nicoderm Cq) 1 patch TD DAILY ELIU Zolpidem Tartrate (Ambien) 5 mg PO HS PRN; Protocol PRN Reason: Insomnia Discontinued Medications Amlodipine Besylate (Norvasc) 5 mg PO STAT STA Stop: 11/19/17 21:52 Last Admin: 11/19/17 22:01 Dose: 5 mg MAR Pulse and Blood Pressure Document 11/19/17 22:01 SS (Rec: 11/19/17 22:01 SS [id number]) Pulse Pulse Rate (60-90) 80 Blood Pressure Blood Pressure (100/60-150/90) 190/113 Clonidine HCl (Catapres) 0.1 mg PO STAT STA Stop: 11/19/17 23:03 Last Admin: 11/19/17 23:48 Dose: 0.1 mg MAR Pulse and Blood Pressure Document 11/19/17 23:48 SS (Rec: 11/19/17 23:49 SS [id number]) Pulse Pulse Rate (60-90) 70 Blood Pressure Blood Pressure (100/60-150/90) 175/105 Haloperidol Lactate (Haldol) 5 mg IM STAT STA; Protocol Stop: 11/20/17 10:10 Last Admin: 11/20/17 10:19 Dose: 5 mg IM Administration Charges Document 11/20/17 10:19 EQ (Rec: 11/20/17 10:19 EQ [facility] [id number] Injection Site MAR Injection Site Left Arm Charges for Administration # of IM Administrations 1 Hydralazine HCl (Apresoline) 10 mg PO ONCE STA Stop: 11/20/17 01:48 Last Admin: 11/20/17 02:47 Dose: 10 mg MAR Pulse and Blood Pressure Document 11/20/17 02:47 SS (Rec: 11/20/17 02:47 SS [id number]) Pulse Pulse Rate (60-90) 98 Blood Pressure Blood Pressure (100/60-150/90) 178/100 Lorazepam (Ativan) 1 mg IM ONCE ONE; Protocol Stop: 11/20/17 05:32 Last Admin: 11/20/17 06:22 Dose: 1 mg IM Administration Charges Document 11/20/17 06:22 SS (Rec: 11/20/17 06:22 SS [id number]) Injection Site MAR Injection Site Right Deltoid Charges for Administration # of IM Administrations 1 Lorazepam (Ativan) 2 mg IM ONCE ONE; Protocol Stop: 11/20/17 10:10 Last Admin: 11/20/17 10:19 Dose: 2 mg IM Administration Charges Document 11/20/17 10:19 EQ (Rec: 11/20/17 10:19 [place] [facility] [id number] Injection Site MAR Injection Site Left Arm Charges for Administration # of IM Administrations 1 - Scribe Statement The provider has reviewed the documentation as recorded by the Scribe Breezy Juaerz. All medical record entries made by the Scribe were at my direction and personally dictated by me. I have reviewed the chart and agree that the record accurately reflects my personal performance of the history, physical exam, medical decision making, and the department course for this patient. I have also personally directed, reviewed, and agree with the discharge instructions and disposition. Disposition/Present on Arrival - Present on Arrival Any Indicators Present on Arrival: No History of DVT/PE: No History of Uncontrolled Diabetes: No Urinary Catheter: No History of Decub. Ulcer: No History Surgical Site Infection Following: Orthopedic Procedures - Disposition Have Diagnosis and Disposition been Completed?: Yes Diagnosis: Psychosis Disposition: Transfer [facility] Disposition Time: 02:00 Condition: STABLE Forms: [employer] (Kyrgyz)
[2017-11-21 23:27] VITALS: O2SAT 100
[2017-11-22 01:19] VITALS: BP 124/76; PULSE 78; RESP 18; TEMP 98.4
--- NOTE | 2017-11-22 06:07 | CON ---
DATE: 11/21/2017 HISTORY OF PRESENT ILLNESS: Shortly, the patient is a 42-year-old male who came to the emergency room, appeared to be confused. The patient was going to different people houses and presented to be disorganized and psychotic. This service writer is very familiar with this patient from the previous admission to the psychiatric inpatient unit, which took place here in [place] a couple of years back. Over the weekend, the patient was appears to be confused, lack capacity to sign himself into the psychiatric inpatient unit. This service writer is following the patient during the evening round in the emergency room. The patient presented to be alert and oriented, talkative. The patient seems to be in manic stage. The patient reported that he was using drugs and usually he is purchasing drugs from the same drug dealer, but this time, the patient ordered drugs on line. The patient reported that he appeared to be confused and he was going to the different people [facility] and was not able to provide much of the history. The patient reported that he lives in [place], but he visits his mother and that is why he ended up here in [place]. This service writer educated the patient about the process of [facility] transfer, the patient verbalized understanding. Meanwhile, the patient was doing well on Abilify 10 mg a day. The patient also was doing well on Effexor as well as Ambien. This service writer will resume the medication. The patient also reported that he smokes about a pack a day and requested to have nicotine patch. In regards of vital signs, seems to be stable. Temperature 98.2, pulse of 105, blood pressure 107/80, respirations 17, oxygen saturation is 95%. MEDICATIONS: Reviewed. Nothing was given to the patient besides Haldol and Ativan on the 11/20/2017. LABORATORY DATA: Reviewed. Toxicology was positive for amphetamines. MENTAL STATUS EXAMINATION: The patient appears to be alert, talkative. The patient seems to be in good mood and comfortable. Thought process is disorganized, circumstantial and tangential. Thought content, the patient obviously is in psychotic. The patient had visual hallucinations, also auditory hallucinations and paranoia and disorganized thinking. Insight and judgment seems to be lacking. Impulses are well controlled so far. IMPRESSION: Rule out substance-induced psychosis, rule out schizophrenia, rule out bipolar disorder. PLAN: Abilify will be started, nicotine patch will be given, Ambien at the nighttime will be started, Effexor will consider to resume. Meanwhile, the patient is under involuntary status right now. The patient is on one to one observation. Should you have any questions, give me a call back. This service writer will follow up on this patient tomorrow at the morning time if the patient will be not transferred. Fely Sherman MD
== END 2017-11-22 01:25 | disposition short-term general hospital (02) ==
LOC: ED 19:12
DX: F29 Unspecified psychosis not due to a substance or known physiological condition (principal); F17.210 Nicotine dependence, cigarettes, uncomplicated; I10 Essential (primary) hypertension
CPT/HCPCS: 71045; 80053; 81003; 83735; 85025; 90791; 93005; 96372; 99285; G0480; J1630; J2060

== ENCOUNTER 2017-12-22 08:35 | Emergency (ER) | payer OTHER ==
[2017-12-22 08:37] VITALS: BMI 23.5
[2017-12-22 08:55] VITALS: O2SAT 100
[2017-12-22 09:35] LABS: BASO # 0.04 K/mm3 (0.0-2.0); BASO % 0.6 % (0.0-3.0); EOS # 0.3 (0.0-0.7); EOS % 4.3 % (1.5-5.0); GRAN # 3.27 (1.4-6.5); GRAN % 45.5 % (50.0-68.0); HEMOGLOBIN 14.2 g/dL (14.0-18.0); LYMPH # 3.1 (1.2-3.4); LYMPH % 43.1 % (22.0-35.0); MEAN CELL VOLUME 90.6 fl (80.0-105.0); MEAN CORPUSCULAR HEMOGLOBIN 32.4 pg (25.0-35.0); MEAN CORPUSCULAR HGB CONC 35.8 g/dl (31.0-37.0); MEAN PLATELET VOLUME 10.4 fl (7.0-11.0); MONO # 0.5 (0.1-0.6); MONO % 6.5 % (1.0-6.0); RBC 4.38 10^6/uL (3.5-6.1); RED CELL DISTRIBUTION WIDTH 12.2 % (11.5-14.5); WHITE BLOOD COUNT 7.2 10^3/uL (4.5-11.0)
--- NOTE | 2017-12-22 09:40 | ED PDOC ---
Arrival/HPI - General Chief Complaint: Lower Extremity Problem/Injury Time Seen by Provider: 12/22/17 08:58 Historian: Patient - History of Present Illness Narrative History of Present Illness (Text): 12/22/17 09:32 A 42 year old male, whose past medical history includes Cardiac stents, HIV, hypertension, depression, anxiety, crystal meth IV use, presents to the emergency department with a complaint swelling of lower leg. Patient states that 1 week ago he hid under a deck and states that he thinks he was bitten by something. The patient states that he developed leg swelling 1 week ago. He notes that he injected IV crystal meth into his left foot the next day. Since then, he has been experiencing numbness to the left leg. He also notes that he developed a rash 6 days ago. The patient denies fevers, chills, headache, di zziness, chest pain, shortness of breath, dyspnea on exertion, cough, abdominal pain, nausea, vomiting, diarrhea, back pain, neck pain, urinary/bowel changes, or any other complaint. PMD: [place] Time/Duration: 1 week Symptom Onset: Gradual Symptom Course: Unchanged Activities at Onset: Rest, Light Past Medical History - Provider Review Nursing Documentation Reviewed: Yes - Infectious Disease Hx of Infectious Diseases: None - Tetanus Immunization Tetanus Immunization: Unknown - Cardiac Hx Hypertension: Yes Hx Pacemaker: No - Pulmonary Hx Tuberculosis: No - Neurological Hx Seizures: No - HEENT Hx HEENT Disorder: No - Renal Hx Renal Disorder: No - Endocrine/Metabolic Hx Endocrine Disorders: No - Hematological/Oncological Hx Cancer: No - Integumentary Other/Comment: herpes - Musculoskeletal/Rheumatological Hx Musculoskeletal Disorders: Yes Hx Back Pain: Yes Hx Falls: Yes Hx Herniated Disk: Yes Other/Comment: PINCHED NERVE - Gastrointestinal Hx Gastrointestinal Disorders: No - Genitourinary/Gynecological Hx Sexually Transmitted Diseases: No - Psychiatric Hx Anxiety: Yes Hx Bipolar Disorder: Yes Hx Depression: Yes Hx Post Traumatic Stress Disorder: Yes Hx Substance Use: Yes - Past Surgical History Past Surgical History: No Previous - Surgical History Hx Coronary Stent: Yes (x3) - Anesthesia Hx Anesthesia: Yes Hx Anesthesia Reactions: No Hx Malignant Hyperthermia: No - Suicidal Assessment Feels Threatened In Home Enviroment: No Family/Social History - Physician Review Nursing Documentation Reviewed: Yes Family/Social History: No Known Family HX Smoking Status: Heavy Smoker > 10 Cigarettes Daily Hx Alcohol Use: Yes Hx Substance Use: Yes Substance used: crystal meth, heroine Hx Substance Use Treatment: No Allergies/Home Meds Allergies/Adverse Reactions: Allergies No Known Allergies Allergy (Verified 11/19/17 20:00) Home Medications: Home Meds Medication Instructions Recorded Confirmed Ramipril [Altace] 1 tab PO DAILY 04/23/17 12/22/17 Review of Systems - Physician Review All systems were reviewed & negative as marked: Yes - Review of Systems Constitutional: absent: Fevers Respiratory: absent: SOB, Cough Cardiovascular: absent: Chest Pain, BUSTILLOS Gastrointestinal: absent: Abdominal Pain, Stool Changes, Diarrhea, Nausea, Vomiting Musculoskeletal: Other (Left leg swelling and limited ROM of left foot. ). absent: Back Pain, Neck Pain Neurological: Other (Left leg numbness.). absent: Headache, Dizziness Physical Exam Vital Signs Reviewed: Yes Vital Signs Temp Pulse Resp BP Pulse Ox 12/22/17 08:46 97.6 F 92 H 18 157/92 H 100 12/22/17 08:37 97.9 F 70 17 161/81 H 100 Temperature: Afebrile Blood Pressure: Hypertensive Pulse: Regular Respiratory Rate: Normal Appearance: Positive for: Well-Appearing, Non-Toxic, Comfortable Pain Distress: None Mental Status: Positive for: Alert and Oriented X 3 - Systems Exam Head: Present: Atraumatic, Normocephalic Pupils: Present: PERRL Extroacular Muscles: Present: EOMI Conjunctiva: Present: Normal Mouth: Present: Moist Mucous Membranes Neck: Present: Normal Range of Motion Respiratory/Chest: Present: Clear to Auscultation, Good Air Exchange. No: Respiratory Distress, Accessory Muscle Use Cardiovascular: Present: Regular Rate and Rhythm, Normal S1, S2. No: Murmurs Abdomen: No: Tenderness, Distention, Peritoneal Signs Back: Present: Normal Inspection Upper Extremity: Present: Normal Inspection. No: Cyanosis, Edema Lower Extremity: Present: NORMAL PULSES (2+ pedal pulses. ), Swelling, Other (1 cm x .5 cm healed supervisual ulcer on the dorsal surface of the left foot. No redness or warmth.). No: Edema, CALF TENDERNESS, Normal ROM (Decreased ROM of left ankle.), Tenderness Neurological: Present: GCS=15, CN II-XII Intact, Speech Normal, Motor Func Grossly Intact, Normal Sensory Function, Normal Cerebellar Funct Skin: Present: Warm, Dry, Rashes (Macular papular rash left lower leg. ), Normal Color Psychiatric: Present: Alert, Oriented x 3, Normal Insight, Normal Concentration Medical Decision Making ED Course and Treatment: 12/22/17 09:52 Impression: A 42 year old male presents to the emergency department with a complaint of left leg numbness, swelling, decreased ROM of the left ankle, and a rash on the left lower leg. Differential Diagnosis included but are not limited to: Cellulitis Plan: -- Left Lower Extremity Ultrasound -- Left Foot X- Ray -- Labs -- Urine/ Blood Culture -- Urinalysis -- Reassess and disposition Prior Visits: Notes and results from previous visits were reviewed. Progress Notes: 12/22/17 09:46: Social Studies Teacher manager control reported ultrasound negative for DVT. 12/22/17 11:00: Left Foot X- Ray read and interpreted by me is negative for fracture. No foreign bodies. Patient has no fever and there is no redness on his lower extremity. No warmth. There is some swelling. There is a macular papular rash. Will treat for early cellulitis. No DVT. Keflex and Bactrim given. He is an HIV pt but has no viral load and CD4 is at a good level as per patient's recent blood work. He was advised to take medications and to return to the ED if symptoms worsen or any other concern. - RAD Interpretation Radiology Orders: 12/22/17 09:14 FOOT LEFT 3 VIEWS ROUTINE [RAD] Stat 12/22/17 09:15 DUPLEX LOWER EXTRM VEIN LEFT [US] Stat Disposition/Present on Arrival - Present on Arrival Any Indicators Present on Arrival: No History of DVT/PE: No History of Uncontrolled Diabetes: No Urinary Catheter: No History of Decub. Ulcer: No History Surgical Site Infection Following: Orthopedic Procedures - Disposition Have Diagnosis and Disposition been Completed?: Yes Diagnosis: Cellulitis Disposition: HOME/ ROUTINE Disposition Time: 11:20 Patient Plan: Discharge Condition: GOOD Discharge Instructions (ExitCare): Cellulitis (ED) Additional Instructions: HAILEY SARAH, thank you for letting us take care of you today. Your provider was Swapnil Munoz DO and you were treated for Left Leg Cellulitis. The emergency medical care you received today was directed at your acute symptoms. If you were prescribed any medication, please fill it and take as directed. It may take several days for your symptoms to resolve. Return to the Emergency Department if your symptoms worsen, do not improve, or if you have any other problems. Please contact your doctor or call one of the physicians/clinics you have been referred to that are listed on the Patient Visit Information form that is included in your discharge packet. Bring any paperwork you were given at discharge with you along with any medications you are taking to your follow up visit. Our treatment cannot replace ongoing medical care by a primary care provider outside of the emergency department. Thank you for allowing the [facility] team to be part of your care today. If you had an X-Ray or CT scan: A Radiologist will review the ED reading if any change in treatment is needed we will contact you. If you had a blood, urine, or wound culture: It will take several days for the results, if any change in treatment is needed we will contact you. If you had an STI test: It will take 48 hours for the results. Please call after 1 week if you have not heard back. Prescriptions: Cephalexin [Keflex] 500 mg PO QID #40 capsule Sulfamethoxazole/Trimethoprim [Bactrim DS 800 mg-160 mg] 1 tab PO BID #20 tab Referrals: Toyin Rivera MD [Staff Provider] - Follow up with primary Forms: [employer] (Kenyan), WORK NOTE
[2017-12-22 09:51] LABS: INR 1.09; PARTIAL THROMBOPLASTIN TIME 28.1 Seconds (25.1-36.5); PROTHROMBIN TIME 12.5 SECONDS (9.4-12.5)
[2017-12-22 09:53] LABS: URINE APPEARANCE CLEAR (CLEAR); URINE BILIRUBIN NEGATIVE (NEGATIVE); URINE BLOOD NEGATIVE (NEGATIVE); URINE COLOR YELLOW (YELLOW); URINE GLUCOSE (UA) NEGATIVE (NEGATIVE); URINE LEUKOCYTE ESTERASE NEGATIVE Leu/uL (NEGATIVE); URINE PROTEIN NEGATIVE mg/dL (<30 mg/dL); URINE UROBILINOGEN 0.2 E.U./dL (<1 E.U./dL)
[2017-12-22 10:40] VITALS: BP 155/78; PULSE 78; RESP 16; TEMP 98
[2017-12-22 10:49] LABS: VENOUS BLOOD GAS BASE EXCESS 1.5 mmol/L (0.0-2.0); VENOUS BLOOD GAS PO2 42 mm/Hg (30-55); VENOUS BLOOD PH 7.33 (7.32-7.43)
[2017-12-22 10:57] LABS: ALB/GLOB RATIO 1.3 (1.1-1.8); ALBUMIN 3.9 g/dL (3.0-4.8); ALT/SGPT 279 U/L (7-56); AST/SGOT 192 U/L (17-59); BLOOD UREA NITROGEN 25 mg/dL (7-21); GFR NON-AFRICAN AMERICAN > 60
[2017-12-22] MEDS ORDERED: Tmp-Smz 800 mg-160 mg DS Tab PO STA (10:59)
--- NOTE | 2017-12-22 11:47 | RAD ---
Date of service: 12/22/2017 PROCEDURE: Left Foot Radiographs. HISTORY: foot swelling COMPARISON: None. FINDINGS: BONES: Normal. No fracture. JOINTS: Normal. SOFT TISSUES: Normal. OTHER FINDINGS: None. IMPRESSION: Normal left foot radiographs.
--- NOTE | 2017-12-22 12:43 | US ---
PROCEDURE: Left lower extremity venous US HISTORY: Leg pain and swelling. Evaluate for DVT. PHYSICIAN(S): Cortez Hercules MD. TECHNIQUE: Duplex sonography and color-flow Doppler with graded compression were used to evaluate the deep venous system of the left lower extremity. FINDINGS: The visualized deep venous system of the left lower extremity is sonographically normal and compressible. Normal wave forms and augmentation are seen. There is no sonographic evidence for deep venous thrombosis in the visualized segments of the left lower extremity. IMPRESSION: 1. No sonographic evidence for deep venous thrombosis in the visualized segments of the left lower extremity.
== END 2017-12-22 11:23 | disposition home or self-care (01) ==
LOC: ED 08:35
DX: L03.116 Cellulitis of left lower limb (principal); I10 Essential (primary) hypertension; F43.10 Post-traumatic stress disorder, unspecified; Z95.5 Presence of coronary angioplasty implant and graft; F17.210 Nicotine dependence, cigarettes, uncomplicated

== ENCOUNTER 2018-01-15 16:15 | Inpatient (IN) | payer OTHER ==
--- NOTE | 2018-01-15 17:09 | ED PDOC ---
Arrival/HPI - General Time Seen by Provider: 01/15/18 16:19 Historian: Patient, EMS - History of Present Illness Narrative History of Present Illness (Text): 01/15/18 17:08 42 year old male, with past medical history of cardiac stents, HIV, hypertension, depression, anxiety, and crystal meth IV use, presents to the Emergency department via [facility] for EDP prior to arrival. As per EMS, patient was reportedly found by family to have a syringe with crystal meth and was observed to be foaming in the mouth. Family subsequently called EMS and patient was brought to the ED for medical evaluation. Upon arrival to the ED, patient is talking non-stop in two different language, Welsh and some other unknown language. Patient admits to crystal meth use. HPI and ROS limited. Time/Duration: Prior to Arrival Symptom Onset: Gradual Symptom Course: Unchanged Activities at Onset: Light Context: Home Past Medical History - Provider Review Nursing Documentation Reviewed: Yes - Infectious Disease Hx of Infectious Diseases: None - Tetanus Immunization Tetanus Immunization: Unknown - Cardiac Hx Hypertension: Yes Hx Pacemaker: No - Pulmonary Hx Tuberculosis: No - Neurological Hx Seizures: No - HEENT Hx HEENT Disorder: No - Renal Hx Renal Disorder: No - Endocrine/Metabolic Hx Endocrine Disorders: No - Hematological/Oncological Hx Cancer: No - Integumentary Other/Comment: herpes - Musculoskeletal/Rheumatological Hx Musculoskeletal Disorders: Yes Hx Back Pain: Yes Hx Falls: Yes Hx Herniated Disk: Yes Other/Comment: PINCHED NERVE - Gastrointestinal Hx Gastrointestinal Disorders: No - Genitourinary/Gynecological Hx Sexually Transmitted Diseases: No - Psychiatric Hx Anxiety: Yes Hx Bipolar Disorder: Yes Hx Depression: Yes Hx Post Traumatic Stress Disorder: Yes Hx Substance Use: Yes - Past Surgical History Past Surgical History: No Previous - Surgical History Hx Coronary Stent: Yes (x3) - Anesthesia Hx Anesthesia: Yes Hx Anesthesia Reactions: No Hx Malignant Hyperthermia: No - Suicidal Assessment Feels Threatened In Home Enviroment: No Family/Social History - Physician Review Nursing Documentation Reviewed: Yes Family/Social History: Unknown Family HX Smoking Status: Heavy Smoker > 10 Cigarettes Daily Hx Alcohol Use: Yes Hx Substance Use: Yes Substance used: crystal meth, heroine Hx Substance Use Treatment: No Allergies/Home Meds Allergies/Adverse Reactions: Allergies No Known Allergies Allergy (Verified 11/19/17 20:00) Home Medications: Home Meds Medication Instructions Recorded Confirmed Ramipril [Altace] 1 tab PO DAILY 04/23/17 12/22/17 Review of Systems - Review of Systems Systems not reviewed;Unavailable: Uncooperative (Secondary to crystal meth use) Physical Exam Vital Signs Reviewed: Yes Vital Signs Temp Pulse Resp BP Pulse Ox 01/15/18 16:31 97.9 F 143 H 22 172/90 H 98 Temperature: Afebrile Blood Pressure: Hypertensive Pulse: Tachycardic Respiratory Rate: Normal Appearance: Positive for: Well-Appearing, Non-Toxic, Comfortable Pain Distress: None - Systems Exam Head: Present: Atraumatic, Normocephalic Pupils: Present: PERRL Extroacular Muscles: Present: EOMI Conjunctiva: Present: Normal Mouth: Present: Dry (White residue noted in the mouth) Neck: Present: Normal Range of Motion Respiratory/Chest: Present: Clear to Auscultation, Good Air Exchange. No: Respiratory Distress, Accessory Muscle Use Cardiovascular: Present: Regular Rate and Rhythm, Normal S1, S2. No: Murmurs Abdomen: No: Tenderness, Distention, Peritoneal Signs Upper Extremity: Present: Other (Puncture wound to anterior aspect of right hand). No: Cyanosis, Edema Lower Extremity: Present: Normal Inspection. No: Edema Neurological: Present: Speech Normal Skin: Present: Warm, Dry, Normal Color. No: Rashes Psychiatric: Present: Other (Bizarre affect. Speaking of different thoughts but in full sentences. ) Medical Decision Making ED Course and Treatment: 01/15/18 17:18 Impression: 42 year old male presents to the Emergency department for medical evaluation s/p crystal meth IV use. Plan: -- Labs -- Urinalysis -- Reassess and disposition Prior Visits: Notes and results from previous visits were reviewed. Progress Notes: Patient had an EKG performed on 11/19/17 and as per protocol, does not need a repeat. 01/15/18 18:20 Patient is medically cleared. PES paged for psychiatric evaluation. 01/15/18 18:42 Awaiting PES response. - Transfer of Care Patient signed out to Dr:: Tommy Pending Labs:: UDS Other: evaluation by PES Disposition/Present on Arrival - Present on Arrival Any Indicators Present on Arrival: No History of DVT/PE: No History of Uncontrolled Diabetes: No Urinary Catheter: No History Surgical Site Infection Following: Orthopedic Procedures - Disposition Have Diagnosis and Disposition been Completed?: Yes Diagnosis: Substance abuse Disposition Time: 18:56 Condition: STABLE
[2018-01-15 17:11] VITALS: BMI 23.3
[2018-01-15 17:23] LABS: BASO # 0.02 K/mm3 (0.0-2.0); BASO % 0.1 % (0.0-3.0); EOS % 0.1 % (1.5-5.0); GRAN # 14.37 (1.4-6.5); GRAN % 84.4 % (50.0-68.0); HEMOGLOBIN 14.5 g/dL (14.0-18.0); LYMPH # 1.5 (1.2-3.4); LYMPH % 8.9 % (22.0-35.0); MEAN CORPUSCULAR HEMOGLOBIN 31.4 pg (25.0-35.0); MEAN CORPUSCULAR HGB CONC 34.9 g/dl (31.0-37.0); MEAN PLATELET VOLUME 9.8 fl (7.0-11.0); MONO # 1.1 (0.1-0.6); MONO % 6.5 % (1.0-6.0); RBC 4.62 10^6/uL (3.5-6.1); RED CELL DISTRIBUTION WIDTH 12.8 % (11.5-14.5)
[2018-01-15 17:35] LABS: ACETAMINOPHEN < 10.0 ug/ml (10.0-20.0)
[2018-01-15 17:42] LABS: ALB/GLOB RATIO 1.3 (1.1-1.8); ALBUMIN 4.9 g/dL (3.0-4.8); ALT/SGPT 29 U/L (7-56); AST/SGOT 37 U/L (17-59); BLOOD UREA NITROGEN 24 mg/dL (7-21); CALCIUM 10.1 mg/dL (8.4-10.5); GFR NON-AFRICAN AMERICAN > 60
[2018-01-15 17:48] LABS: SALICYLATE < 1 mg/dL (2.0-20.0)
--- NOTE | 2018-01-15 19:36 | ED PDOC ---
Physical Exam Vital Signs Reviewed: Yes Vital Signs Temp Pulse Resp BP Pulse Ox 01/15/18 18:28 115 H 20 184/74 H 97 01/15/18 16:31 97.9 F 143 H 22 172/90 H 98 Temperature: Afebrile Blood Pressure: Hypertensive Pulse: Tachycardic Respiratory Rate: Normal Appearance: Positive for: Non-Toxic, Comfortable, Other (Bizarre affect) Pain Distress: None - Systems Exam Head: Present: Atraumatic, Normocephalic Pupils: Present: PERRL Extroacular Muscles: Present: EOMI Conjunctiva: Present: Normal Mouth: Present: Dry Respiratory/Chest: Present: Clear to Auscultation, Good Air Exchange. No: Respiratory Distress, Accessory Muscle Use Cardiovascular: Present: Regular Rate and Rhythm, Normal S1, S2. No: Murmurs Abdomen: No: Tenderness, Distention, Peritoneal Signs Upper Extremity: Present: Normal ROM. No: Cyanosis, Edema Lower Extremity: Present: Normal Inspection. No: Edema Neurological: Present: Speech Normal Skin: Present: Warm, Dry, Normal Color. No: Rashes Psychiatric: Present: Other (Bizarre affect, p presents persistent talking transitioning between somali and a different language. ) Medical Decision Making ED Course and Treatment: 01/15/18 19:13 Case endorsed to me by Dr. Silva for pending PES evaluation. Patient is a 42 year old male who presented to the Emergency department earlier for medical evaluation s/p IV use of crystal meth. Patient was medically cleared by previous attending. Patient currently resting in bed in no acute distress. 01/15/18 19:45 PES at bedside believes patient is not cooperative enough to provide statement. Will wait for patient to reach sobriety for reevaluation and disposition. 01/16/18 05:38 Pt seen and evaluated by PES screener Gabriella, who discussed case with psychiatrist director of infection prevention. Pt to be screened by [facility] PES for involuntary admission. 01/16/18 07:00 Case endorsed to /pending [facility] screening/final disposition - Lab Interpretations Lab Results: 01/15/18 17:18 01/15/18 17:18 Lab Results 01/15/18 17:18: Alcohol, Quantitative < 10 01/15/18 17:18: Salicylates < 1 L, Acetaminophen < 10.0 L 01/15/18 17:18: Sodium 140, Potassium 3.7, Chloride 104, Carbon Dioxide 22, Anion Gap 18, BUN 24 H, Creatinine 1.1, Est GFR ( Amer) > 60, Est GFR (Non-Af Amer) > 60, Random Glucose 125 H, Calcium 10.1, Magnesium 1.8, Total Bilirubin 0.2, AST 37, ALT 29, Alkaline Phosphatase 74, Total Protein 8.6 H, Albumin 4.9 H, Globulin 3.6, Albumin/Globulin Ratio 1.3 01/15/18 17:18: WBC 17.0 H D, RBC 4.62, Hgb 14.5, Hct 41.6 L, MCV 90.0, MCH 31.4, MCHC 34.9, RDW 12.8, Plt Count 308, MPV 9.8, Gran % 84.4 H, Lymph % (Auto) 8.9 L, [place] % (Auto) 6.5 H, Eos % (Auto) 0.1 L, Baso % (Auto) 0.1, Gran # 14.37 H, Lymph # (Auto) 1.5, [place] # (Auto) 1.1 H, Eos # (Auto) 0.0, Baso # (Auto) 0.02 - Scribe Statement The provider has reviewed the documentation as recorded by the Scribe Breezy Juarez. All medical record entries made by the Scribe were at my direction and personally dictated by me. I have reviewed the chart and agree that the record accurately reflects my personal performance of the history, physical exam, medical decision making, and the department course for this patient. I have also personally directed, reviewed, and agree with the discharge instructions and disposition. Disposition/Present on Arrival - Present on Arrival Any Indicators Present on Arrival: No History of DVT/PE: No History of Uncontrolled Diabetes: No Urinary Catheter: No History of Decub. Ulcer: No History Surgical Site Infection Following: Orthopedic Procedures - Disposition Have Diagnosis and Disposition been Completed?: No Diagnosis: Substance abuse, Drug-induced psychotic disorder with delusions Disposition Time: 07:00 Patient Problems: Current Active Problems Problem Status Onset Drug-induced psychotic disorder with delusions Acute Substance abuse Acute Condition: STABLE Forms: [employer] (Romansh)
[2018-01-16 02:57] LABS: PH,URINE 6.5 (4.7-8.0); URINE APPEARANCE CLEAR (CLEAR); URINE BILIRUBIN NEGATIVE (NEGATIVE); URINE BLOOD TRACE-INTACT (NEGATIVE); URINE COLOR YELLOW (YELLOW); URINE GLUCOSE (UA) NEGATIVE (NEGATIVE); URINE LEUKOCYTE ESTERASE NEGATIVE Leu/uL (NEGATIVE); URINE PROTEIN TRACE mg/dL (<30 mg/dL); URINE UROBILINOGEN 0.2 E.U./dL (<1 E.U./dL)
[2018-01-16 03:14] LABS: URINE EPITHELIAL CELLS 0 - 2 /hpf (0-5); URINE WBC 0 - 2 /hpf (0-6)
[2018-01-16 03:15] LABS: URINE BACTERIA FEW (NEG)
[2018-01-16 03:55] LABS: BARBITURATES, UR NEGATIVE (NEGATIVE); BENZODIAZEPINES, UR NEGATIVE (NEGATIVE); OPIATES, UR NEGATIVE (NEGATIVE); PHENCYCLIDINE, UR NEGATIVE (NEGATIVE)
--- NOTE | 2018-01-16 07:21 | ED PDOC ---
Physical Exam Vital Signs Reviewed: Yes Vital Signs Temp Pulse Resp BP Pulse Ox 01/16/18 06:20 97 H 18 177/92 H 97 01/16/18 03:08 108 H 18 132/60 95 01/15/18 20:59 108 H 21 187/78 H 97 01/15/18 18:28 115 H 20 184/74 H 97 01/15/18 16:31 97.9 F 143 H 22 172/90 H 98 Temperature: Afebrile Blood Pressure: Hypertensive Pulse: Tachycardic Respiratory Rate: Normal Appearance: Positive for: Well-Appearing, Non-Toxic, Comfortable Pain Distress: None Mental Status: Positive for: Alert and Oriented X 3 Medical Decision Making ED Course and Treatment: 01/16/18 07:20 Patient signed out to me by Dr. Sanders, patient is medically cleared by previous team, brought in for drug abuse, pending [facility] screening. 01/16/18 08:50 Patient has been accepted into Dr. Geiger's service. He is in no acute distress. 01/16/18 09:18 - Lab Interpretations Lab Results: 01/15/18 17:18 01/15/18 17:18 Lab Results 01/16/18 02:35: Urine Opiates Screen Negative, Urine Methadone Screen Negative, Ur Barbiturates Screen Negative, Ur Phencyclidine Scrn Negative, Ur Amphetamines Screen Positive H, U Benzodiazepines Scrn Negative, U Oth Cocaine Metabols Negative, U Cannabinoids Screen Positive H 01/16/18 02:35: Urine Color Yellow, Urine Appearance Clear, Urine pH 6.5, Ur Specific [place] 1.025, Urine Protein Trace H, Urine Glucose (UA) Negative, Uri ne Ketones Negative, Urine Blood Trace-intact H, Urine Nitrate Negative, Urine Bilirubin Negative, Urine Urobilinogen 0.2, Ur Leukocyte Esterase Negative, Urine RBC 1 - 3, Urine WBC 0 - 2, Ur Epithelial Cells 0 - 2, Urine Bacteria Few 01/15/18 17:18: Alcohol, Quantitative < 10 01/15/18 17:18: Salicylates < 1 L, Acetaminophen < 10.0 L 01/15/18 17:18: Sodium 140, Potassium 3.7, Chloride 104, Carbon Dioxide 22, Anion Gap 18, BUN 24 H, Creatinine 1.1, Est GFR ( Amer) > 60, Est GFR (Non-Af Amer) > 60, Random Glucose 125 H, Calcium 10.1, Magnesium 1.8, Total Bilirubin 0.2, AST 37, ALT 29, Alkaline Phosphatase 74, Total Protein 8.6 H, Albumin 4.9 H, Globulin 3.6, Albumin/Globulin Ratio 1.3 01/15/18 17:18: WBC 17.0 H D, RBC 4.62, Hgb 14.5, Hct 41.6 L, MCV 90.0, MCH 31.4, MCHC 34.9, RDW 12.8, Plt Count 308, MPV 9.8, Gran % 84.4 H, Lymph % (Auto) 8.9 L, [place] % (Auto) 6.5 H, Eos % (Auto) 0.1 L, Baso % (Auto) 0.1, Gran # 14.37 H, Lymph # (Auto) 1.5, [place] # (Auto) 1.1 H, Eos # (Auto) 0.0, Baso # (Auto) 0.02 I have reviewed the lab results: Yes - Scribe Statement The provider has reviewed the documentation as recorded by the Scribe Nani Salinas Provider Scribe Attestation: All medical record entries made by the Scribe were at my direction and personally dictated by me. I have reviewed the chart and agree that the record accurately reflects my personal performance of the history, physical exam, medical decision making, and the department course for this patient. I have also personally directed, reviewed, and agree with the discharge instructions and disposition. Disposition/Present on Arrival - Present on Arrival Any Indicators Present on Arrival: No History of DVT/PE: No History of Uncontrolled Diabetes: No Urinary Catheter: No History of Decub. Ulcer: No History Surgical Site Infection Following: Orthopedic Procedures - Disposition Have Diagnosis and Disposition been Completed?: Yes Diagnosis: Substance abuse, Drug-induced psychotic disorder with delusions Disposition Time: 09:18 Patient Problems: Current Active Problems Problem Status Onset Substance abuse Acute Drug-induced psychotic disorder with delusions Acute Condition: STABLE Forms: [employer] (Vietnamese)
[2018-01-16 11:29] VITALS: O2SAT 99
--- NOTE | 2018-01-16 13:13 | RAD ---
Date of service: 01/16/2018 HISTORY: per psych team COMPARISON: 11/19/2017 FINDINGS: LUNGS: The lungs are well inflated and clear. PLEURA: No pleural effusions or pneumothorax. CARDIOVASCULAR: The heart is normal in size. No aortic atherosclerotic calcification present. OSSEOUS STRUCTURES: Within normal limits for the patient's age. VISUALIZED UPPER ABDOMEN: Normal. OTHER FINDINGS: None. IMPRESSION: No active pulmonary disease.
--- NOTE | 2018-01-16 14:41 | CON ---
DATE: 01/16/2018 HISTORY OF PRESENT ILLNESS: In short, the patient is 42-year-old [place]ian descent male with long history of polysubstance abuse and dependence, history of psychosis, multiple psychiatric admissions in the past. The patient was transferred to [facility] in November at the beginning of the month. The patient was brought in after the patient was found unresponsive, foam in his mouth, and syringe with crystal meth by family. The patient was brought in, in the emergency room. The patient presented to be disorganized, was not able to provide history, that is why this movie writer got involved into the patient care. This movie writer is very familiar with this patient from the multiple emergency room visits, as well as prolonged psychiatric admission, history of mood spectrum disorder, psychosis, as well as polysubstance abuse and dependence. Please see previous notes for more detailed information. The patient was seen and examined. The patient presented with poor personal hygiene. The patient obviously in manic stage as well as psychosis. The patient was rambling, alternating Jordanian with Amharic. The patient remembered this movie writer by name from the previous admission. The patient reported that he does not feel well and reported that he is willing to sign himself into the psychiatric inpatient unit. The patient was observed talking to himself loudly, laughing and crying at the same time. The patient obviously is psychotic and requires further hospitalization, observation, and medication resumption. MEDICATIONS: Reviewed. From the previous history, the patient was doing well on Abilify, Effexor, and Ambien. PHYSICAL EXAMINATION: VITAL SIGNS: Reviewed. Temperature 97.9, pulse is 97, blood pressure 177/92, respirations 18, oxygen saturation is 97. LABORATORY DATA: Reviewed. WBC cells 17. Chemistry reviewed. Urinalysis with urine blood, large. Toxicology was positive for amphetamines and cannabis. MENTAL STATUS EXAMINATION: As this movie writer described above, the patient presented to be alert with labile affect. Mood, the patient described as extremely, extremely pleasant this patient. "Thought process circumstantial, tangential. The patient obviously had difficult to stay focused and concentrate. Thought content, the patient is obviously responding to internal stimuli, laughing and crying at the same time. The patient was observed talking to himself. Insight and judgment seemed to be limited. Impulses are well controlled. IMPRESSION: Psychosis, not otherwise specified, rule out schizophrenia, rule out bipolar disorder with psychosis, rule out substance-induced psychosis, rule out polysubstance abuse and dependence. The patient has multiple medical issues including human immunodeficiency virus, also history of stent placement. Please see emergency room notes for more detailed information. PLAN: We will resume medications. We will confirm medications from the patient's pharmacy. P.r.n. orders will be given. Medical consult will be called. The patient is willing to stay in the hospital and complete the treatment. The patient has capacity to sign voluntary into the psychiatric inpatient unit. Should you have any questions, give me a call back. Fely Sherman MD
--- NOTE | 2018-01-16 14:43 | CP.PCM.CON ---
<Grayson Silva - Last Filed: 01/16/18 16:18> History of Present Illness - History of Present Illness History of Present Illness: Medical Consult note for Hospitalist Dr. Alexi Silva PGY2 Reason for consult: Hypertension HPI: Patient is a 42 M with a history of CAD s/p 3 stents, HIV, hypertension, and bipolar disorder presenting to the ED by BLS after admitting drug use. It was reported that patient was found by family to have a syringe with crystal meth in his room. Patient was then medically cleared by the ED and PES came to evaluate patient. Patient was accepted into the voluntary psychiatry unit. PMD: patient's HIV specialist Dr. Christian Riley Hx: Admits to tobacco use, alcoohl, and drug use (heroin, cyrstal meth). Lives with family Surgical Hx: PTCA x 3 with stent placement Allergies: denies Review of Systems - Review of Systems Systems not reviewed;Unavailable: Psychotic (manic) Past Patient History - Infectious Disease Hx of Infectious Diseases: None - Tetanus Immunizations Tetanus Immunization: Unknown - Past Social History Smoking Status: Heavy Smoker > 10 Cigarettes Daily - CARDIAC Hx Cardiac Disorders: No Hx Hypertension: Yes - PULMONARY Hx Tuberculosis: No - NEUROLOGICAL HX Cerebrovascular Accident: No Hx Seizures: No - HEENT Hx HEENT Problems: No - RENAL Hx Chronic Kidney Disease: No - ENDOCRINE/METABOLIC Hx Endocrine Disorders: No - HEMATOLOGICAL/ONCOLOGICAL Hx Cancer: No Hx Human Immunodeficiency Virus (HIV): No - INTEGUMENTARY Other/Comment: herpes - MUSCULOSKELETAL/RHEUMATOLOGICAL Hx Musculoskeletal Disorders: Yes Hx Back Pain: Yes Hx Falls: Yes Hx Herniated Disk: Yes Other/Comment: PINCHED NERVE - GASTROINTESTINAL Hx Gastrointestinal Disorders: No - GENITOURINARY/GYNECOLOGICAL Hx Sexually Transmitted Disorders: No - PSYCHIATRIC Hx Anxiety: Yes Hx Bipolar Disorder: Yes Hx Depression: Yes Hx Post Traumatic Stress Disorder: Yes Hx Substance Use: Yes - SURGICAL HISTORY Hx Coronary Stent: Yes (x3) - ANESTHESIA Hx Anesthesia: Yes Hx Anesthesia Reactions: No Hx Malignant Hyperthermia: No Meds Allergies/Adverse Reactions: Allergies Allergy/AdvReac Type Severity Reaction Status Date / Time No Known Allergies Allergy Verified 01/16/18 13:25 - Medications Medications: Current Medications Ramipril (Altace) 2.5 mg PO DAILY ELIU Last Admin: 01/16/18 14:03 Dose: 2.5 mg Physical Exam - Head Exam Head Exam: ATRAUMATIC, NORMAL INSPECTION, NORMOCEPHALIC - Eye Exam Eye Exam: EOMI - ENT Exam ENT Exam: Mucous Membranes Moist - Neck Exam Neck exam: Positive for: Normal Inspection - Respiratory Exam Respiratory Exam: Clear to Auscultation Bilateral, Wheezes (RLQ), NORMAL BREATHING PATTERN - Cardiovascular Exam Cardiovascular Exam: Tachycardia, REGULAR RHYTHM, +S1, +S2 - GI/Abdominal Exam GI & Abdominal Exam: Normal Bowel Sounds - Extremities Exam Extremities exam: Negative for: normal inspection (healing wound in left foot where patient injected crystal meth) - Back Exam Back exam: NORMAL INSPECTION - Neurological Exam Neurological exam: Alert - Psychiatric Exam Psychiatric exam: Manic - Skin Skin Exam: Warm Results - Vital Signs Recent Vital Signs: Last Vital Signs Temp 99.2 F 01/16/18 12:20 Pulse 89 01/16/18 12:20 Resp 18 01/16/18 12:20 BP 168/107 H 01/16/18 14:03 Pulse Ox 99 01/16/18 10:40 - Labs Result Diagrams: 01/16/18 14:00 01/15/18 17:18 Labs: Laboratory Results - last 24 hr 01/15/18 01/15/18 01/15/18 17:18 17:18 17:18 WBC 17.0 H D RBC 4.62 Hgb 14.5 Hct 41.6 L MCV 90.0 MCH 31.4 MCHC 34.9 RDW 12.8 Plt Count 308 MPV 9.8 Gran % 84.4 H Lymph % (Auto) 8.9 L [place] % (Auto) 6.5 H Eos % (Auto) 0.1 L Baso % (Auto) 0.1 Gran # 14.37 H Lymph # (Auto) 1.5 [place] # (Auto) 1.1 H Eos # (Auto) 0.0 Baso # (Auto) 0.02 Sodium 140 Potassium 3.7 Chloride 104 Carbon Dioxide 22 Anion Gap 18 BUN 24 H Creatinine 1.1 Est GFR ( Amer) > 60 Est GFR (Non-Af Amer) > 60 Random Glucose 125 H Calcium 10.1 Magnesium 1.8 Total Bilirubin 0.2 AST 37 ALT 29 Alkaline Phosphatase 74 Total Protein 8.6 H Albumin 4.9 H Globulin 3.6 Albumin/Globulin Ratio 1.3 Urine Color Urine Appearance Urine pH Ur Specific [place] Urine Protein Urine Glucose (UA) Urine Ketones Urine Blood Urine Nitrate Urine Bilirubin Urine Urobilinogen Ur Leukocyte Esterase Urine RBC Urine WBC Ur Epithelial Cells Urine Bacteria Salicylates < 1 L Urine Opiates Screen Urine Methadone Screen Acetaminophen < 10.0 L Ur Barbiturates Screen Ur Phencyclidine Scrn Ur Amphetamines Screen U Benzodiazepines Scrn U Oth Cocaine Metabols U Cannabinoids Screen Alcohol, Quantitative 01/15/18 01/16/18 01/16/18 17:18 02:35 02:35 WBC RBC Hgb Hct MCV MCH MCHC RDW Plt Count MPV Gran % Lymph % (Auto) [place] % (Auto) Eos % (Auto) Baso % (Auto) Gran # Lymph # (Auto) [place] # (Auto) Eos # (Auto) Baso # (Auto) Sodium Potassium Chloride Carbon Dioxide Anion Gap BUN Creatinine Est GFR ( Amer) Est GFR (Non-Af Amer) Random Glucose Calcium Magnesium Total Bilirubin AST ALT Alkaline Phosphatase Total Protein Albumin Globulin Albumin/Globulin Ratio Urine Color Yellow Urine Appearance Clear Urine pH 6.5 Ur Specific [place] 1.025 Urine Protein Trace H Urine Glucose (UA) Negative Urine Ketones Negative Urine Blood Trace-intact H Urine Nitrate Negative Urine Bilirubin Negative Urine Urobilinogen 0.2 Ur Leukocyte Esterase Negative Urine RBC 1 - 3 Urine WBC 0 - 2 Ur Epithelial Cells 0 - 2 Urine Bacteria Few Salicylates Urine Opiates Screen Negative Urine Methadone Screen Negative Acetaminophen Ur Barbiturates Screen Negative Ur Phencyclidine Scrn Negative Ur Amphetamines Screen Positive H U Benzodiazepines Scrn Negative U Oth Cocaine Metabols Negative U Cannabinoids Screen Positive H Alcohol, Quantitative < 10 Assessment & Plan - Assessment and Plan (Free Text) Assessment: subha is a 42 M with a history of CAD s/p 3 stents, HIV, hypertension, and bipolar disorder presenting to the ED after IV crystal meth use. Plan: IV drug abuse (Crystal Meth) -Patient educated on drug cessation -Further management as per psychiatry team Hypertension -Patient on 2.5 mg ramipril, will increase dosage to 5 mg starting tomorrow -Hydralazine PRN -BP most likely elevated due to patient's drug use Leukocytosis -Improving -Most likely reactive due to recent IV drug use. Will continue to monitor CBC CAD s/p 3 stents -Lipid panel ordered; ASCVD score to determine statin dosage -Continue with aspirin, ramipril -Patient electively decided to no longer continue with plavix -B-Jayant therapy was discontinued as per patient's territory account executive due to bradycardia Drug Cessation -Patient advised on drug cessation <Alexandrea Truong - Last Filed: 01/17/18 08:03> Meds - Medications Medications: Current Medications Aspirin (Ecotrin) 81 mg PO DAILY ELIU Last Admin: 01/16/18 15:08 Dose: 81 mg Atorvastatin Calcium (Lipitor) 40 mg PO DIN ELIU Lorazepam (Ativan) 2 mg PO Q6 PRN; Protocol PRN Reason: agitation/anxiety Last Admin: 01/16/18 22:07 Dose: 2 mg Lorazepam (Ativan) 2 mg IM Q6H PRN PRN Reason: Agitation Multivitamins/Minerals (Therapeutic-M Tab) 1 tab PO 0800 ELIU Olanzapine (Zyprexa Zydis) 5 mg PO [facility]HS [facility]; Protocol Last Admin: 01/16/18 22:08 Dose: 5 mg Ziprasidone (Geodon Inj) 20 mg IM Q6H PRN; Protocol PRN Reason: severe agitaiton/psychosis Ziprasidone (Geodon Cap) 20 mg PO Q6H PRN; Protocol PRN Reason: psychosis/agitation Last Admin: 01/16/18 15:09 Dose: 20 mg Zolpidem Tartrate (Ambien) 5 mg PO HS [facility]; Protocol Last Admin: 01/16/18 22:07 Dose: 5 mg Results - Vital Signs Recent Vital Signs: Last Vital Signs Temp 98.5 F 01/17/18 07:12 Pulse 111 H 01/17/18 07:12 Resp 22 01/17/18 07:12 BP 88/59 L 01/17/18 07:12 Pulse Ox 99 01/16/18 10:40 - Labs Result Diagrams: 01/17/18 06:20 01/15/18 17:18 Labs: Laboratory Results - last 24 hr 01/16/18 01/17/18 01/17/18 14:00 06:20 06:20 WBC 15.4 H 7.6 D RBC 4.74 4.67 Hgb 15.0 14.6 Hct 42.7 42.2 MCV 90.1 90.4 MCH 31.6 31.3 MCHC 35.1 34.6 RDW 13.1 13.1 Plt Count 341 269 MPV 10.1 10.0 Fasting Glucose 90 Triglycerides 84 Cholesterol 240 H LDL Cholesterol Direct 159 H HDL Cholesterol 42 TSH 3rd Generation 01/17/18 06:20 WBC RBC Hgb Hct MCV MCH MCHC RDW Plt Count MPV Fasting Glucose Triglycerides Cholesterol LDL Cholesterol Direct HDL Cholesterol TSH 3rd Generation 2.71 Attending/Attestation - Attestation I have personally seen and examined this patient.: Yes I have fully participated in the care of the patient.: Yes I have reviewed all pertinent clinical information: Yes Notes (Text): 01/16/18 42 year old male with past medical history of CAD s/p stents, HIV, hypertension, bipolar and substance abuse (IV crystal meth) who is currently admitted under psychiatric unit. Medical consultation was requested for evaluation. Patient was counselled on risks of continued substance abuse. Continue with aspirin and ramipril for CAD/HTN. Can consider ramipril dose if continues to be hypertensive. He should also be on plavix and statin unless this was discontinued by his cardiology, however patiently electively decided to stop medication. He is not on beta jayant due to history of bradycardia. Lipid panel ordered for AM. Can resume home HIV medication once confirmed home medication. Leukocytosis likely reactive. CXR/UA were negative. Will repeat CBC in AM. Further management as per psychiatrist. Thank you Dr. Sherman for allowing us to participate in the care of this patient. We will continue to follow. Alexandrea Truong MD Hospitalist.
[2018-01-16 14:52] LABS: MEAN CELL VOLUME 90.1 fl (80.0-105.0); MEAN CORPUSCULAR HEMOGLOBIN 31.6 pg (25.0-35.0); MEAN CORPUSCULAR HGB CONC 35.1 g/dl (31.0-37.0); MEAN PLATELET VOLUME 10.1 fl (7.0-11.0); RBC 4.74 10^6/uL (3.5-6.1); RED CELL DISTRIBUTION WIDTH 13.1 % (11.5-14.5); WHITE BLOOD COUNT 15.4 10^3/uL (4.5-11.0)
--- NOTE | 2018-01-16 18:45 | CARD ---
APPROVED REPORT Date of service: 01/16/2018 EKG Measurement Heart [id number] <Conclusion> Sinus rhythm with sinus arrhythmia with short MD Moderate voltage criteria for LVH, may be normal variant Borderline ECG
[2018-01-16] MEDS: OLANZapine 5 mg Disintegrating Tab PO SCH (22:08)
[2018-01-17 06:47] LABS: HEMOGLOBIN 14.6 g/dL (14.0-18.0); MEAN CELL VOLUME 90.4 fl (80.0-105.0); MEAN CORPUSCULAR HEMOGLOBIN 31.3 pg (25.0-35.0); MEAN CORPUSCULAR HGB CONC 34.6 g/dl (31.0-37.0); RBC 4.67 10^6/uL (3.5-6.1); RED CELL DISTRIBUTION WIDTH 13.1 % (11.5-14.5); WHITE BLOOD COUNT 7.6 10^3/uL (4.5-11.0)
[2018-01-17 07:02] LABS: GLUCOSE,FASTING 90 mg/dL (65-110); HDL CHOLESTEROL 42 mg/dL (29-60)
[2018-01-17 07:13] LABS: LDL CHOLESTEROL 159 mg/dL (0-129)
--- NOTE | 2018-01-17 09:49 | PCM.BM ---
<Arpit Gonzalez - Last Filed: 01/17/18 09:46> Treatment Plan Problems - Problems identified on initial assessmt Altered Thought Process Date Initiated: 01/16/18 Time Initiated: 13:00 Assessment reference: NA Status: Active Priority: 1 Ineffective Impulse Control Date Initiated: 01/16/18 Time Initiated: 13:00 Assessment reference: NA Status: Active Priority: 2 Agitated/Aggressive Behavior Date Initiated: 01/16/18 Time Initiated: 13:00 Assessment reference: NA Status: Active Priority: 3 Altered Sleep Patterns Date Initiated: 01/16/18 Time Initiated: 13:00 Assessment reference: NA Status: Active Priority: 4 Treatment assets and liabiliti Patient Assests: adapts well, ADL independent, good support system, negotiates basic needs Patient Liabilities: financial problems, substance abuse, medical problems, imparied memory - Milieu Protocol Maintain good personal hygiene: daily Encourage regular showers, every shift Remind patient to perform daily oral care, every shift Assist patient to perform ADL's Maintain personal safety: every shift Educate patient to report safety concerns to staff, every shift Monitor environment for contraband/sharps Medication safety: Monitor for expected outcome, potential side effects: every s hift, Assess barriers to learning: every shift, Assess readiness for medication education: every shift Family Contact Family involvement: Family/SO is involved Family contact: Patient agrees to contact - Goals for Treatment Patient goals for treatment: unable to identify Discharge/Continuing Care - Education Needs Education Needs: Patient Medication, Patient Diagnosis/Disease Process, Patient Coping Skills, Patient Anger Management skills, Patient Placement options, Patient Community resources, Patient Activities of Daily Living, Patient Pain, Patient Nutrition, Patient Uses of Medical Equipment, Patient Health Practices/S afety, Patient Personal Hygiene/Grooming, Patient Aftercare Safety Plan - Discharge Discharge Criteria: Tolerates medication w/o severe side effects, Free of valente tation, Normal sleep pattern, No longer exhibiting s/s of withdrawal Discharge to:: Home <Catina Ballard - Last Filed: 01/17/18 10:31> Family Contact Family involvement: Family/SO is involved <Fely Sherman - Last Filed: 01/17/18 15:33> - Diagnosis (1) Drug-induced psychotic disorder with delusions Status: Acute Interventions: 01/17/18 15:31 Psychoeducation/psychotherapy Psychopharmacology/adjustment of medications as needed/ monitoring possible side effects Evaluate pt on daily basis Compliance with medications and follow up appointments Long acting medication if pt is noncompliant with pill form Suicide and homicide risk assessment and prevention, coping strategies, safety plan Relapse prevention Reduction of symptoms Improve functional status Possible assertive community treatment Cognitive behavioral therapy Family involvement Possible social skill training as outpatient (2) Bipolar II disorder Status: Acute Interventions: 01/17/18 15:32 Psychoeducation Psychopharmacology/adjustment of medications as needed/ monitoring possible side effects Monitor blood level of mood stabilizers Evaluate pt on daily basis Compliance with medications and follow up appointments Suicide and homicide risk assessment and prevention, coping strategies, safety plan Relapse prevention Reduction of symptoms Improve functional status Family involvement As outpatient: cognitive behavioral therapy (3) Polysubstance dependence including opioid type drug, continuous use, with delirium Status: Acute Interventions: Monitoring withdrawal symptoms Medical detoxification Pharmacotherapy for alcohol/benzos/opioid dependence Maintaining sobriety Relapse prevention Possible rehabilitation Motivational interviewing 12-step programs: AA meetings
[2018-01-17] MEDS: OLANZapine 5 mg Disintegrating Tab PO SCH (09:53)
[2018-01-17] MEDS: Multivitamin With Minerals Tab PO SCH (09:54)
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
[2018-01-17] MEDS: COMPLERA PO SCH (18:11)
--- NOTE | 2018-01-17 18:49 | CP.PCM.PCO ---
Assessment & Plan - Assessment and Plan (Free Text) Assessment: 42 M with history of Bipolar disorder, HIV, drug abuse, hypertension, dyslipidemia, CAD s/p 3 stents presenting s/p IV crystal meth usage. Plan: CAD s/p 3 stents -patient to continue on ramipril, statin, and aspirin upon discharge. Patient electively decided to stop taking plavix after 1 year. Patient is no longer on B-Jayant due to affects of bradycardia as per previous charts. Hypertension -patient on ramipril 2.5 daily. This was placed on hold due to decreased blood pressure. Patient is okay to resume this med upon discharge. Will continue to monitor patients BP while in hospital. Dyslipidemia - patient started on statin. Patient electively discontinued his statin however it is recommended patient continues to take considering ASCVD score of 16% and CAD history. Healing wound on left foot -can be treated with bacitracin cream. Patient educated on keeping wound clean and to stop picking at the scab.
[2018-01-18 07:30] VITALS: RESP 20
[2018-01-18] MEDS: Multivitamin With Minerals Tab PO SCH (09:19)
[2018-01-18] MEDS: Bacitracin/Neomycin/Polymyxin Oint(30GM) TOP PRN (09:25)
[2018-01-18] MEDS: COMPLERA PO SCH (09:40)
--- NOTE | 2018-01-18 14:13 | PCM.PYCHPN ---
Psychiatric Progress Note - Psychiatric Progress Note Patient seen today, length of contact: 30 minutes Patient Chief Complaint: "I spoke to my mother, I did not know that I lost my consciousness and I was foaming in my mouth, if this is scary" Problems Identified/Issues Discussed: Suicide/ homicide prevention, past psychiatric h/o, current psychiatric symptoms, medical problems, risk/benefits and alternatives of medications, medications compliance, coping strategies, substance abuse h/o, relapse prevention, importance of follow up with psychiatrist and therapist, discharge plan. Medical Problems: As per medical team: "42 M with history of Bipolar disorder, HIV, drug abuse, hypertension, dyslipidemia, CAD s/p 3 stents presenting s/p IV crystal meth usage. CAD s/p 3 stents -patient to continue on ramipril, statin, and aspirin upon discharge. Patient electively decided to stop taking plavix after 1 year. Patient is no longer on B-Jayant due to affects of bradycardia as per previous charts. Hypertension -patient on ramipril 2.5 daily. This was placed on hold due to decreased blood pressure. Patient is okay to resume this med upon discharge. Will continue to monitor patients BP while in hospital. Dyslipidemia - patient started on statin. Patient electively discontinued his statin however it is recommended patient continues to take considering ASCVD score of 16% and CAD history. Healing wound on left foot -can be treated with bacitracin cream. Patient educated on keeping wound clean and to stop picking at the scab. " Input appreciated Diagnostic Results: 01/17/18 06:20 01/15/18 17:18 Lab Results 01/17/18 06:20: RPR Nonreactive 01/17/18 06:20: TSH 3rd Generation 2.71 01/17/18 06:20: WBC 7.6 D, RBC 4.67, Hgb 14.6, Hct 42.2, MCV 90.4, MCH 31.3, MCHC 34.6, RDW 13.1, Plt Count 269, MPV 10.0 01/17/18 06:20: Fasting Glucose 90, Triglycerides 84, Cholesterol 240 H, LDL Cholesterol Direct 159 H, HDL Cholesterol 42 01/16/18 14:00: WBC 15.4 H, RBC 4.74, Hgb 15.0, Hct 42.7, MCV 90.1, MCH 31.6, MCHC 35.1, RDW 13.1, Plt Count 341, MPV 10.1 01/16/18 02:35: Urine Opiates Screen Negative, Urine Methadone Screen Negative, Ur Barbiturates Screen Negative, Ur Phencyclidine Scrn Negative, Ur Amphetamines Screen Positive H, U Benzodiazepines Scrn Negative, U Oth Cocaine Metabols Negative, U Cannabinoids Screen Positive H 01/16/18 02:35: Urine Color Yellow, Urine Appearance Clear, Urine pH 6.5, Ur Specific [place] 1.025, Urine Protein Trace H, Urine Glucose (UA) Negative, Urine Ketones Negative, Urine Blood Trace-intact H, Urine Nitrate Negative, Urine Bilirubin Negative, Urine Urobilinogen 0.2, Ur Leukocyte Esterase Negative, Urine RBC 1 - 3, Urine WBC 0 - 2, Ur Epithelial Cells 0 - 2, Urine Bacteria Few 01/15/18 17:18: Alcohol, Quantitative < 10 01/15/18 17:18: Salicylates < 1 L, Acetaminophen < 10.0 L 01/15/18 17:18: Sodium 140, Potassium 3.7, Chloride 104, Carbon Dioxide 22, Anion Gap 18, BUN 24 H, Creatinine 1.1, Est GFR ( Amer) > 60, Est GFR (Non-Af Amer) > 60, Random Glucose 125 H, Calcium 10.1, Magnesium 1.8, Total Bilirubin 0.2, AST 37, ALT 29, Alkaline Phosphatase 74, Total Protein 8.6 H, Albumin 4.9 H, Globulin 3.6, Albumin/Globulin Ratio 1.3 01/15/18 17:18: WBC 17.0 H D, RBC 4.62, Hgb 14.5, Hct 41.6 L, MCV 90.0, MCH 31.4, MCHC 34.9, RDW 12.8, Plt Count 308, MPV 9.8, Gran % 84.4 H, Lymph % (Auto) 8.9 L, [place] % (Auto) 6.5 H, Eos % (Auto) 0.1 L, Baso % (Auto) 0.1, Gran # 14.37 H, Lymph # (Auto) 1.5, [place] # (Auto) 1.1 H, Eos # (Auto) 0.0, Baso # (Auto) 0.02 Vital Signs Temp Pulse Resp BP Pulse Ox 01/18/18 07:30 98.5 F 87 20 111/74 01/17/18 16:00 96 H 106/63 01/17/18 07:12 98.5 F 111 H 22 88/59 L 01/16/18 15:58 98.4 F 104 H 155/95 H 01/16/18 15:04 103 H 203/99 H 01/16/18 14:03 168/107 H 01/16/18 12:20 99.2 F 89 18 168/107 H 01/16/18 10:40 98.0 F 93 H 18 99 01/16/18 10:30 98.0 F 98 H 20 150/82 100 01/16/18 06:20 97 H 18 177/92 H 97 01/16/18 03:08 108 H 18 132/60 95 01/15/18 20:59 108 H 21 187/78 H 97 01/15/18 18:28 115 H 20 184/74 H 97 01/15/18 16:31 97.9 F 143 H 22 172/90 H 98 DSM 5 Symptoms Update: shortly pt is 42 year old male, with reported h/o mental illness, depression/anxiety, pt is currently on disability for mental illness, h/o polysubstance abuse and dependence, past medical history of cardiac stents, HIV, hypertension, pt was brought in s/p crystal meth IV use, reportedly found by family to have a syringe with crystal meth and was observed to be foaming in the mouth. Family subsequently called EMS and patient was brought to the ED for medical evaluation. Upon arrival to the ED, patient is observed to be psychotic, had full conversation with turned off TV, was hallucinating, was unable to stay still. This engineering technical writer evaluated pt in ED as per ED consult request, pt was willing to be admitted, willing to get treatment at psych unit. see consult for more detailed information. pt was seen in his room with medical students and resident. Patient presented to be talkative but was better organized thought process. Patient reported he had a chance to speak to his mom and she said "I lost my con sciousness and I was forming in my mouth, I got very scared", patient was educated about dangerousness all of continue using drugs including crystal meth, patient reported she ingested "more grams than I usually use", patient stated that that he usually used 5gram, "I missed my vein first time, and I injected another 5gram", patient reported that he lost his consciousness and all he remember EMS came over and he came to the hospital. Patient still presents to be disorganized but with some improvements with his thought process and speech. As per staff patient is visible in the unit, no agitation, no aggression, at times restlessness. So far patient tolerates medications well, no side effects observed or reported, Og 0, no EPS. Impression: DSM 5 Diagnosis: r/o substance induced psychosis, stimulants h/o MDD, h/o anxiety stimulant use disorder r/o bipolar disorder Medication Change: Yes (Seroquel increased) Medical Record Reviewed: Yes Consults ordered or reviewed: Medical consult appreciated Mental Status Examination - Cognitive Function Orientation: Person, Place Memory: Impaired Attention: Poor Concentration: Poor Association: Loose Fund of Knowledge: Poor - Mood Mood: Depressed, Anxious - Affect Affect: Flat - Formal Thought Process Formal Thought Process: Hallucinations (Improving), Delusions (Improving), Paranoia (Improving), Loosening of associations - Suicidal Ideation Suicidal Ideation: No - Homicidal Ideation Homicidal Ideation: No Goal/Treatment Plan - Goal/Treatment Plan Need for Continued Stay: Remain at risks for inpatient hospitalization, Severe depression anxiety, Discharge may exacerbated symptoms, Severe functional impairment Progress Toward Problem(s) and Goals/Treatment Plan: Milieu/structure/supportive therapy Medical consult appreciated, see medical team note for more detailed info SW consultation for discharge plan and social issues Med management meds confirmed and resumed seroquel increased to 100mg po bid for psychosis Family involvement Follow up on labs Will monitor closely Pt was educated about risk/benefits and alternatives of medications, coping s trategies (safety plan, suicide prevention), relapse prevention, importance of follow up with psychiatrist and therapist, stay away from drugs/alcohol/smoking Estimated Date of D/C: 01/22/18
[2018-01-18] MEDS ORDERED: Magnesium Hydroxide Susp 30 ml UD PO PRN (16:48)
[2018-01-18] MEDS ORDERED: Alum-Mag Hydrox-Simethicone Susp (30 mL) PO PRN (16:48)
[2018-01-19] MEDS: Multivitamin With Minerals Tab PO SCH (08:30)
[2018-01-19] MEDS: Bacitracin/Neomycin/Polymyxin Oint(30GM) TOP PRN (08:35)
[2018-01-19] MEDS: COMPLERA PO SCH (14:50)
--- NOTE | 2018-01-19 17:08 | PCM.PYCHPN ---
Psychiatric Progress Note - Psychiatric Progress Note Patient seen today, length of contact: 30 minutes Patient Chief Complaint: "I am happy to be alive" Problems Identified/Issues Discussed: Suicide/ homicide prevention, past psychiatric h/o, current psychiatric symptoms, medical problems, risk/benefits and alternatives of medications, medications compliance, coping strategies, substance abuse h/o, relapse prevention, importance of follow up with psychiatrist and therapist, discharge plan. Medical Problems: As per medical team: "42 M with history of Bipolar disorder, HIV, drug abuse, hypertension, dyslipidemia, CAD s/p 3 stents presenting s/p IV crystal meth usage. CAD s/p 3 stents -patient to continue on ramipril, statin, and aspirin upon discharge. Patient electively decided to stop taking plavix after 1 year. Patient is no longer on B-Jayant due to affects of bradycardia as per previous charts. Hypertension -patient on ramipril 2.5 daily. This was placed on hold due to decreased blood pressure. Patient is okay to resume this med upon discharge. Will continue to monitor patients BP while in hospital. Dyslipidemia - patient started on statin. Patient electively discontinued his statin however it is recommended patient continues to take considering ASCVD score of 16% and CAD history. Healing wound on left foot -can be treated with bacitracin cream. Patient educated on keeping wound clean and to stop picking at the scab. " Input appreciated Diagnostic Results: 01/17/18 06:20 01/15/18 17:18 Lab Results 01/17/18 06:20: RPR Nonreactive 01/17/18 06:20: TSH 3rd Generation 2.71 01/17/18 06:20: WBC 7.6 D, RBC 4.67, Hgb 14.6, Hct 42.2, MCV 90.4, MCH 31.3, MCHC 34.6, RDW 13.1, Plt Count 269, MPV 10.0 01/17/18 06:20: Fasting Glucose 90, Triglycerides 84, Cholesterol 240 H, LDL Cholesterol Direct 159 H, HDL Cholesterol 42 01/16/18 14:00: WBC 15.4 H, RBC 4.74, Hgb 15.0, Hct 42.7, MCV 90.1, MCH 31.6, MCHC 35.1, RDW 13.1, Plt Count 341, MPV 10.1 01/16/18 02:35: Urine Opiates Screen Negative, Urine Methadone Screen Negative, Ur Barbiturates Screen Negative, Ur Phencyclidine Scrn Negative, Ur Amphetamines Screen Positive H, U Benzodiazepines Scrn Negative, U Oth Cocaine Metabols Negative, U Cannabinoids Screen Positive H 01/16/18 02:35: Urine Color Yellow, Urine Appearance Clear, Urine pH 6.5, Ur Specific [place] 1.025, Urine Protein Trace H, Urine Glucose (UA) Negative, Urine Ketones Negative, Urine Blood Trace-intact H, Urine Nitrate Negative, Urine Bilirubin Negative, Urine Urobilinogen 0.2, Ur Leukocyte Esterase Negative, Urine RBC 1 - 3, Urine WBC 0 - 2, Ur Epithelial Cells 0 - 2, Urine B acteria Few 01/15/18 17:18: Alcohol, Quantitative < 10 01/15/18 17:18: Salicylates < 1 L, Acetaminophen < 10.0 L 01/15/18 17:18: Sodium 140, Potassium 3.7, Chloride 104, Carbon Dioxide 22, Anion Gap 18, BUN 24 H, Creatinine 1.1, Est GFR ( Amer) > 60, Est GFR (Non-Af Amer) > 60, Random Glucose 125 H, Calcium 10.1, Magnesium 1.8, Total Bilirubin 0.2, AST 37, ALT 29, Alkaline Phosphatase 74, Total Protein 8.6 H, Albumin 4.9 H, Globulin 3.6, Albumin/Globulin Ratio 1.3 01/15/18 17:18: WBC 17.0 H D, RBC 4.62, Hgb 14.5, Hct 41.6 L, MCV 90.0, MCH 31.4, MCHC 34.9, RDW 12.8, Plt Count 308, MPV 9.8, Gran % 84.4 H, Lymph % (Auto) 8.9 L, Ida % (Auto) 6.5 H, Eos % (Auto) 0.1 L, Baso % (Auto) 0.1, Gran # 14.37 H, Lymph # (Auto) 1.5, Ida # (Auto) 1.1 H, Eos # (Auto) 0.0, Baso # (Auto) 0.02 Vital Signs Temp Pulse Resp BP Pulse Ox 01/18/18 07:30 98.5 F 87 20 111/74 01/17/18 16:00 96 H 106/63 01/17/18 07:12 98.5 F 111 H 22 88/59 L 01/16/18 15:58 98.4 F 104 H 155/95 H 01/16/18 15:04 103 H 203/99 H 01/16/18 14:03 168/107 H 01/16/18 12:20 99.2 F 89 18 168/107 H 01/16/18 10:40 98.0 F 93 H 18 99 01/16/18 10:30 98.0 F 98 H 20 150/82 100 01/16/18 06:20 97 H 18 177/92 H 97 01/16/18 03:08 108 H 18 132/60 95 01/15/18 20:59 108 H 21 187/78 H 97 01/15/18 18:28 115 H 20 184/74 H 97 01/15/18 16:31 97.9 F 143 H 22 172/90 H 98 DSM 5 Symptoms Update: shortly pt is 42 year old male, with reported h/o mental illness, depression/anxiety, pt is currently on disability for mental illness, h/o polysubstance abuse and dependence, past medical history of cardiac stents, HIV, hypertension, pt was brought in s/p crystal meth IV use, reportedly found by family to have a syringe with crystal meth and was observed to be foaming in the mouth. Family subsequently called EMS and patient was brought to the ED for medical evaluation. Upon arrival to the ED, patient is observed to be psychotic, had full conversation with turned off TV, was hallucinating, was unable to stay still. This telegraphic typewriter operator chief evaluated pt in ED as per ED consult request, pt was willing to be admitted, willing to get treatment at psych unit. see consult for more detailed information. pt was seen at the hallway with medical students. Patient presented to be talkative but was better organized thought process. Patient was given assignment to write a letter about his experience prior to coming to the hospital (off note pt unintentionally overdosed on crystal meth IV, was unresponsive, was found by his mother forming in his mouth). Patient wrote very positive letter, 4 pages, patient seems to be a sincerely remorseful for his drug abuse, patient expressed future oriented plans that he wants to start fresh, patient had been more insightful about his near experience. Letter was filed into the chart. Patient still presents to be mildly disorganized but with some improvements with his thought process and speech. As per staff patient is visible in the unit, no agitation, no aggression, at times restlessness. So far patient tolerates medications well, no side effects observed or reported, Og 0, no EPS. Impression: DSM 5 Diagnosis: r/o substance induced psychosis, stimulants h/o MDD, h/o anxiety stimulant use disorder r/o bipolar disorder Medication Change: Yes (Seroquel increased 01/18/2018) Medical Record Reviewed: Yes Consults ordered or reviewed: Medical consult appreciated Mental Status Examination - Cognitive Function Orientation: Person, Place Memory: Impaired Attention: Poor (Some improvement) Concentration: Poor (Some improvement) Association: Loose (Improvement) Fund of Knowledge: WNL - Mood Mood: Depressed ("I feel better"), Anxious ("I am less anxious") - Affect Affect: Constricted (But more reactive, mood congruent) - Formal Thought Process Formal Thought Process: Hallucinations (Denied today), Delusions (Denied today), Paranoia (Denied today) - Suicidal Ideation Suicidal Ideation: No - Homicidal Ideation Homicidal Ideation: No Goal/Treatment Plan - Goal/Treatment Plan Need for Continued Stay: Remain at risks for inpatient hospitalization, Severe depression anxiety, Discharge may exacerbated symptoms, Severe functional impairment Progress Toward Problem(s) and Goals/Treatment Plan: Milieu/structure/supportive therapy Medical consult appreciated, see medical team note for more detailed info SW consultation for discharge plan and social issues Med management meds confirmed and resumed seroquel 100mg po bid for psychosis And as needed medications Family involvement Follow up on labs Will monitor closely Pt was educated about risk/benefits and alternatives of medications, coping strategies (safety plan, suicide prevention), relapse prevention, importance of follow up with psychiatrist and therapist, stay away from drugs/alcohol/smoking Estimated Date of D/C: 01/22/18
[2018-01-20] MEDS: COMPLERA PO SCH (08:43)
[2018-01-20] MEDS: Multivitamin With Minerals Tab PO SCH (08:43)
--- NOTE | 2018-01-20 11:57 | PCM.PYCHPN ---
Psychiatric Progress Note - Psychiatric Progress Note Patient seen today, length of contact: 30 minutes Problems Identified/Issues Discussed: I reviewed assessment and recent notes. I met with patient in the hallway. He is well groomed and oriented x3. Indicates that he is feeling much better, believes his medications are beneficial. Affect demonstrates good range and spontaneity. He denies hallucinations or paranoia and there have been no major behavioral issues over the weekend thus far. Patient denies major concerns or new pain but does report continued discomfort and swelling from a wound in his left foot. Diagnostic Results: r/o substance induced psychosis, stimulants h/o MDD, h/o anxiety stimulant use disorder r/o bipolar disorder Medication Change: No ( ) Medical Record Reviewed: Yes Mental Status Examination - Cognitive Function Orientation: Person, Place Memory: Impaired Attention: WNL (Some improvement) Concentration: WNL (Some improvement) Association: WNL (Improvement) Fund of Knowledge: WNL - Mood Mood: Depressed ("I feel better"), Anxious ("I am less anxious") - Affect Affect: Constricted (But more reactive, mood congruent) - Formal Thought Process Formal Thought Process: Hallucinations (Denied today), Delusions (Denied today), Paranoia (Denied today) - Suicidal Ideation Suicidal Ideation: No - Homicidal Ideation Homicidal Ideation: No Goal/Treatment Plan - Goal/Treatment Plan Need for Continued Stay: Remain at risks for inpatient hospitalization, Severe depression anxiety, Discharge may exacerbated symptoms, Severe functional impairment Progress Toward Problem(s) and Goals/Treatment Plan: * c/w current tx and plan * Vitals reviewed and noted below: Selected Entries 01/18/18 01/19/18 07:30 07:43 Temperature 98.5 F 97.6 F Pulse Rate 87 98 H Respiratory 20 20 Rate Blood Pressure 111/74 121/79 Estimated Date of D/C: 01/22/18
[2018-01-21] MEDS: Bacitracin/Neomycin/Polymyxin Oint(30GM) TOP PRN (06:32)
[2018-01-21 07:30] VITALS: TEMP 97.8
[2018-01-21] MEDS: Multivitamin With Minerals Tab PO SCH (09:19)
[2018-01-21] MEDS: COMPLERA PO SCH (09:19)
--- NOTE | 2018-01-21 09:46 | PCM.PYCHPN ---
Psychiatric Progress Note - Psychiatric Progress Note Patient seen today, length of contact: 30 minutes Problems Identified/Issues Discussed: I reviewed recent notes and met with patient in the dayroom. He remains well groomed and oriented x3. Indicates that he is feeling much better, believes his medications are beneficial. Affect demonstrates good range and spontaneity. He denies hallucinations or paranoia and there have been no major behavioral issues over the weekend thus far. Patient denies major concerns or new pain. He has been seen socializing with other patients and he is generally pleasant and friendly with a bright personality. Diagnostic Results: r/o substance induced psychosis, stimulants h/o MDD, h/o anxiety stimulant use disorder r/o bipolar disorder Medication Change: No ( ) Medical Record Reviewed: Yes Mental Status Examination - Cognitive Function Orientation: Person, Place Memory: Impaired Attention: WNL (Some improvement) Concentration: WNL (Some improvement) Association: WNL (Improvement) Fund of Knowledge: WNL - Mood Mood: Depressed ("I feel better"), Anxious ("I am less anxious") - Affect Affect: Broad - Speech Speech: Appropriate - Formal Thought Process Formal Thought Process: Hallucinations (NONE), Delusions (NONE ), Paranoia ( NONE) - Suicidal Ideation Suicidal Ideation: No - Homicidal Ideation Homicidal Ideation: No Goal/Treatment Plan - Goal/Treatment Plan Need for Continued Stay: Remain at risks for inpatient hospitalization, Severe depression anxiety, Discharge may exacerbated symptoms, Severe functional impairment Progress Toward Problem(s) and Goals/Treatment Plan: * c/w current tx and plan * Vitals reviewed and noted below: Selected Entries 01/19/18 01/20/18 07:43 07:31 Temperature 97.6 F 98.0 F Pulse Rate 98 H 75 Respiratory 20 20 Rate Blood Pressure 121/79 113/76 * No new weekend lab results Estimated Date of D/C: 01/22/18
[2018-01-22 07:08] VITALS: BP 138/97; PULSE 75
[2018-01-22] MEDS: Multivitamin With Minerals Tab PO SCH (08:45)
[2018-01-22] MEDS: Bacitracin/Neomycin/Polymyxin Oint(30GM) TOP PRN (08:45)
[2018-01-22] MEDS: COMPLERA PO SCH (08:46)
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
== END 2018-01-22 14:13 | disposition home or self-care (01) | DRG 885 ==
LOC: ED 16:15 → ERH 01-16 09:16 → PSYC 01-16 11:53
PROVIDERS: ADMIT Psychiatry & Neurology Psychiatry; ATTEND Psychiatry & Neurology Psychiatry
DX: F31.81 Bipolar II disorder (principal); F11.250 Opioid dependence with opioid-induced psychotic disorder with delusions; F15.150 Other stimulant abuse with stimulant-induced psychotic disorder with delusions; F41.0 Panic disorder [episodic paroxysmal anxiety]; F40.00 Agoraphobia, unspecified; F42.9 Obsessive-compulsive disorder, unspecified; F43.10 Post-traumatic stress disorder, unspecified; E78.5 Hyperlipidemia, unspecified; D72.829 Elevated white blood cell count, unspecified; I10 Essential (primary) hypertension; Z21 Asymptomatic human immunodeficiency virus [HIV] infection status; I25.10 Atherosclerotic heart disease of native coronary artery without angina pectoris; I45.81 Long QT syndrome; T50.901A Poisoning by unspecified drugs, medicaments and biological substances, accidental (unintentional), initial encounter; Z72.0 Tobacco use; Z81.1 Family history of alcohol abuse and dependence; Z95.5 Presence of coronary angioplasty implant and graft; G58.9 Mononeuropathy, unspecified; R00.1 Bradycardia, unspecified